=== PATIENT | male | born 1975 | race Caucasian/White ===

== ENCOUNTER 2017-10-14 18:47 | Emergency (ER) | payer SELFPAY ==
[~2017-10-14 18:47] MED LIST: BACT PO; BACT800T5 PO; CEPH500C3 PO
[2017-10-14 18:49] VITALS: BP 136/92; PULSE 98; RESP 14; TEMP 98; O2SAT 98
[2017-10-14] MEDS ORDERED: predniSONE 20 MG TAB PO ONE (19:30)
--- NOTE | 2017-10-14 20:00 | RADRPT ---
EXAM DATE/TIME: 10/14/2017 19:18 [facility] COMPARISON: CT BRAIN W/O CONTRAST, December 12, 2011, 15:01. INDICATIONS : Right facial paralysis. RADIATION DOSE: 56.35 CTDIvol (mGy) MEDICAL HISTORY : Seizures. Hepatitis C. SURGICAL HISTORY : None. ENCOUNTER: Initial ACUITY: 1 day PAIN SCALE: 0/10 LOCATION: cranial TECHNIQUE: Multiple contiguous axial images were obtained of the head. Using automated exposure control and adj ustment of the mA and/or kV according to patient size, radiation dose was kept as low as reasonably a chievable to obtain optimal diagnostic quality images. DICOM format image data is available electro nically for review and comparison. FINDINGS: CEREBRUM: The ventricles are normal for age. No evidence of midline shift, mass lesion, hemorrhage or acute in farction. No extra-axial fluid collections are seen. POSTERIOR FOSSA: The cerebellum and brainstem are intact. The 4th ventricle is midline. The cerebellopontine angle i s unremarkable. EXTRACRANIAL: The visualized portion of the orbits is intact. SKULL: The calvaria is intact. No evidence of skull fracture. CONCLUSION: No acute disease. No significant change has occurred. Miugel Patricio MD on October 14, 2017 at 19:57 Board Certified Radiologist. This report was verified electronically.
[2017-10-14] MEDS ORDERED: PRED20 PO (20:18)
[2017-10-14] MEDS ORDERED: PRED50 PO (20:18)
[2017-10-14] MEDS ORDERED: ACYC400T PO (20:18)
[2017-10-14] MEDS ORDERED: IBUP1TAB7 PO (20:18)
--- NOTE | 2017-10-14 20:28 | PD ---
HPI Chief Complaint: Numbness/Tingling Time Seen by Provider: 19:07 Travel History International Travel<30 days: No Contact w/Intl Traveler<30days: No Traveled to known affect area: No History of Present Illness HPI 42-year-old male that presents to the ED for evaluation of numbness to the right head with facial paralysis. The patient previous history of Simms's palsy and has had issues from and in the past her he notices this no flare about 3 days ago. Per patient has some pain in his ear. Patient is a little concerned because it started a little different where he had numbness on shoulder and then numbness to face the day after. No history of trauma. No chest or shortness of breath. Pain. Patient is 4 out of 10. No urinary or bowel movement issues. No fevers chills or sweats. Has no PCP in the area. Denies any history of CVA. Paralysis only to the right side of the face. Denies any other neurological deficits. PFSH Past Medical History Hx Anticoagulant Therapy: No Arthritis: No Asthma: No Autoimmune Disease: No Blood Disorders: No Anxiety: No Depression: No Heart Rhythm Problems: No Cancer: No Cardiovascular Problems: No High Cholesterol: No Chemotherapy: No Chest Pain: No Congestive Heart Failure: No COPD: No Cerebrovascular Accident: No Diabetes: No Diminished Hearing: No Endocrine: No Gastrointestinal Disorders: Yes Genitourinary: No Hepatitis: Yes (C) Immune Disorder: No Implanted Vascular Access Dvce: No Kidney Stones: No Musculoskeletal: Yes Neurologic: Yes (hx of bells palsy ) Psychiatric: Yes Reproductive: No Respiratory: No Immunizations Current: No Migraines: No Radiation Therapy: No Renal Failure: No Seizures: Yes Sickle Cell Disease: No Sleep Apnea: No Thyroid Disease: No Tetanus Vaccination: < 5 Years PNEUMOCCOCAL Vaccine (Year): 3 Past Surgical History Abdominal Surgery: No AICD: No Arteriovenous Shunt: No Cardiac Surgery: No Ear Surgery: No Endocrine Surgery: No Eye Surgery: No Genitourinary Surgery: No Gynecologic Surgery: No Insulin Pump: No Joint Replacement: No Oral Surgery: No Pacemaker: No Thoracic Surgery: No Other Surgery: Yes (MRSA RIGHT RING FINGER SCRAPED OUT OF JOINT) Social History Alcohol Use: No Tobacco Use: Yes (1 PPD) Substance Use: No (pt denies) Allergies-Medications (Allergen,Severity, Reaction): Coded Allergies: codeine (Unverified Allergy, Severe, Nausea/Vomiting, 10/14/17) *MDRO Multi-Drug Resistant Organism (Verified Allergy, Unknown, 10/14/17) MRSA Reported Meds & Prescriptions Reported Meds & Active Scripts Active Prednisone 20 Mg Tab 10 Mg PO DAILY 1 Days Take 40 mg (2 tablets) daily for 5 days Prednisone 20 Mg Tab 20 Mg PO DAILY 1 Days Take 40 mg (2 tablets) daily for 5 days Prednisone 20 Mg Tab 30 Mg PO DAILY 1 Days Take 40 mg (2 tablets) daily for 5 days Prednisone 20 Mg Tab 40 Mg PO DAILY 1 Days Take 40 mg (2 tablets) daily for 5 days Prednisone 50 Mg Tab 50 Mg PO DAILY 1 Days Prednisone 20 Mg Tab 60 Mg PO DAILY 5 Days Acyclovir 400 Mg Tab 400 Mg PO 5 TIMES A DAY 10 Days Ibuprofen 800 Mg Tab 800 Mg PO Q8H PRN Review of Systems Except as stated in HPI: all other systems reviewed are Neg Physical Exam Narrative GENERAL: SKIN: Warm and dry. HEAD: Atraumatic. Normocephalic. EYES: Pupils equal and round 4mms reactive to light and accomodation. No scleral icterus. No injection or drainage. ENT: No nasal bleeding or discharge. Mucous membranes pink and moist. Tongue is midline. Patient does have obvious paralysis on the right side of the face note sparing the forehead. Patient cannot close the right eye fully. Patient has full EOM motion. NECK: Trachea midline. No JVD. CARDIOVASCULAR: Regular rate and rhythm. RESPIRATORY: No accessory muscle use. Clear to auscultation. Breath sounds equal bilaterally. GASTROINTESTINAL: Abdomen soft, non-tender, nondistended. Hepatic and splenic margins not palpable. MUSCULOSKELETAL: Extremities without clubbing, cyanosis, or edema. No obvious deformities. full ROM of the upper and lower extremities bilaterally. Neurovascular intact. 2+ pulses bilaterally. No lumbar, thoracic, cervical spine tenderness to palpation. NEUROLOGICAL: Awake and alert. No obvious cranial nerve deficits. Motor grossly within normal limits. Five out of 5 muscle strength in the arms and legs. Normal speech. PSYCHIATRIC: Appropriate mood and affect; insight and judgment normal. Data Data Last Documented VS Vital Signs Date Time Temp Pulse Resp B/P (MAP) Pulse Ox O2 Delivery O2 Flow Rate FiO2 10/14/17 18:49 98.0 98 14 136/92 (107) 98 Orders Orders Prednisone (Deltasone) (10/14/17 19:30) Ct Brain W/O Iv Contrast(Rout) (10/14/17 ) Ed Discharge Order (10/14/17 20:22) [facility] Medical Decision Making Medical Screen Exam Complete: Yes Emergency Medical Condition: Yes Medical Record Reviewed: Yes Interpretation(s) Last Impressions Head CT 10/14/17 0000 Signed Impressions: Service Date/Time: Saturday, October 14, 2017 19:18 - CONCLUSION: No acute disease. No significant change has occurred. Miguel Patricio MD Differential Diagnosis Simms's palsy versus CVA versus normal exam Narrative Course 42-year-old male that presents to the ED for evaluation of possible Simms's palsy. Patient was properly examined and was found to have signs and symptoms consistent with appears to be Simms's palsy. He is concerned because his her having numbness on the shoulder before the symptoms started. CT was ordered to rule out any sign of acute CVA out of this appears to be less likely. CT was negative. Patient was crying tach. Patient agrees with discharge instructions. Patient was given prescription for penicillin and given the first dose of that here. Patient was given prescription for cyclobenzaprine and ibuprofen for pain. Told to follow closely with PCP. See ED worsening symptoms. Follow with neurologist. Diagnosis Primary Impression: Simms's palsy Patient Instructions: General Instructions Additional Instructions: Take medications as prescribed. Follow with PCP. See ED worsening symptoms. Med/Other Pt SpecificInfo: Prescription(s) given Scripts Prednisone (Prednisone) 20 Mg Tab 10 MG PO DAILY for 1 Day, #1 TAB 0 Refills Take 40 mg (2 tablets) daily for 5 days Prov: Mercy White MD 10/14/17 Prednisone (Prednisone) 20 Mg Tab 20 MG PO DAILY for 1 Day, #1 TAB 0 Refills Take 40 mg (2 tablets) daily for 5 days Prov: Mercy White MD 10/14/17 Prednisone (Prednisone) 20 Mg Tab 30 MG PO DAILY for 1 Day, #2 TAB 0 Refills Take 40 mg (2 tablets) daily for 5 days Prov: Mercy White MD 10/14/17 Prednisone (Prednisone) 20 Mg Tab 40 MG PO DAILY for 1 Day, #2 TAB 0 Refills Take 40 mg (2 tablets) daily for 5 days Prov: Mercy White MD 10/14/17 Prednisone (Prednisone) 50 Mg Tab 50 MG PO DAILY for 1 Day, #1 TAB 0 Refills Prov: Mercy White MD 10/14/17 Prednisone (Prednisone) 20 Mg Tab 60 MG PO DAILY for 5 Days, #15 TAB 0 Refills Prov: Mercy White MD 10/14/17 Acyclovir (Acyclovir) 400 Mg Tab 400 MG PO 5 TIMES A DAY for Mgmt Viral Infection for 10 Days, TAB 0 Refills Prov: Mercy White MD 10/14/17 Ibuprofen (Ibuprofen) 800 Mg Tab 800 MG PO Q8H Y for PAIN SCALE 1 TO 10, #20 TAB 0 Refills Prov: Mercy White MD 10/14/17 Disposition: 01 DISCHARGE HOME Condition: Kaleb Palacio Oct 14, 2017 20:28
== END 2017-10-14 20:41 | disposition home or self-care (01) ==
LOC: NEPC 18:47
DX: G51.0 Bell's palsy (principal); R56.9 Unspecified convulsions; F17.200 Nicotine dependence, unspecified, uncomplicated; Z79.899 Other long term (current) drug therapy; Z86.19 Personal history of other infectious and parasitic diseases; Z88.5 Allergy status to narcotic agent
CPT/HCPCS: 70450; 99284; J7512

== ENCOUNTER 2017-11-02 02:05 | Emergency (ER) | payer SELFPAY ==
[~2017-11-02] VITALS: Ht 172.7 cm; Wt 72.5 kg
[~2017-11-02 02:05] MED LIST changes: +ACYC400T PO; -BACT PO; -BACT800T5 PO; -CEPH500C3 PO; +IBUP1TAB7 PO; +PRED20 PO; +PRED50 PO
[2017-11-02 02:10] VITALS: BP 102/61; PULSE 89; RESP 17; TEMP 98.4; O2SAT 99
--- NOTE | 2017-11-02 03:30 | PD ---
HPI . Overdose Chief Complaint: OD/ Ingestion Time Seen by Provider: 02:27 Travel History International Travel<30 days: No Contact w/Intl Traveler<30days: No Traveled to known affect area: No History of Present Illness HPI The patient is brought to us via [facility] after a heroin overdose. He was resuscitated in the field with Narcan 0.4 mg IV. He is now awake and alert. History Past Medical History Anxiety: No Arthritis: No Asthma: No Autoimmune Disease: No Blood Disorders: No Cancer: No Heart Rhythm Problems: No Cardiovascular Problems: No High Cholesterol: No Chemotherapy: No Chest Pain: No Congestive Heart Failure: No COPD: No Cerebrovascular Accident: No Depression: No Diabetes: No Endocrine: No Gastrointestinal Disorders: Yes Genitourinary: No Hearing: No Hepatitis: Yes (C) Immune Disorder: No Implanted Vascular Access Dvce: No Kidney Stones: No Musculoskeletal: Yes Neurologic: Yes (hx of bells palsy ) Psychiatric: Yes Reproductive: No Respiratory: No Immunizations Current: No Migraines: No Radiation Therapy: No Renal Failure: No Sickle Cell Disease: No Sleep Apnea: No Thyroid Disease: No PNEUMOCCOCAL Vaccine (Year): 3 Vision or Eye Problem: No Past Surgical History Abdominal Surgery: No AICD: No Arteriovenous Shunt: No Cardiac Surgery: No Ear Surgery: No Endocrine Surgery: No Eye Surgery: No Genitourinary Surgery: No Gynecologic Surgery: No Insulin Pump: No Joint Replacement: No Oral Surgery: No Pacemaker: No Thoracic Surgery: No Other Surgery: Yes (MRSA RIGHT RING FINGER SCRAPED OUT OF JOINT) Social History Tobacco Use in Home: Yes (1 PPD) Alcohol Use: No Tobacco Use: Yes (1 PPD) Substance Use: No (pt denies) Allergies-Medications (Allergen,Severity, Reaction): Coded Allergies: codeine (Unverified Allergy, Severe, Nausea/Vomiting, 10/14/17) *MDRO Multi-Drug Resistant Organism (Verified Allergy, Unknown, 10/14/17) MRSA Reported Meds & Prescriptions Reported Meds & Active Scripts Active Prednisone 20 Mg Tab 10 Mg PO DAILY 1 Days Take 40 mg (2 tablets) daily for 5 days Prednisone 20 Mg Tab 20 Mg PO DAILY 1 Days Take 40 mg (2 tablets) daily for 5 days Prednisone 20 Mg Tab 30 Mg PO DAILY 1 Days Take 40 mg (2 tablets) daily for 5 days Prednisone 20 Mg Tab 40 Mg PO DAILY 1 Days Take 40 mg (2 tablets) daily for 5 days Prednisone 50 Mg Tab 50 Mg PO DAILY 1 Days Prednisone 20 Mg Tab 60 Mg PO DAILY 5 Days Acyclovir 400 Mg Tab 400 Mg PO 5 TIMES A DAY 10 Days Ibuprofen 800 Mg Tab 800 Mg PO Q8H PRN ROS Except as stated in HPI: all other systems reviewed are Neg Physical Exam Narrative GENERAL: Awake and alert and fully oriented. SKIN: warm/dry. HEAD: Normocephalic. Atraumatic. EYES: Pupils equal and round. No scleral icterus. No injection or drainage. ENT: No nasal bleeding or discharge. Mucous membranes pink and moist. NECK: Trachea midline. Full range of motion without pain.. CARDIOVASCULAR: Regular rate and rhythm. RESPIRATORY: No accessory muscle use. Clear to auscultation. Breath sounds equal bilaterally. MUSCULOSKELETAL: No obvious deformities. NEUROLOGICAL: Awake and alert. No obvious cranial nerve deficits. Motor grossly within normal limits. Normal speech. PSYCHIATRIC: Appropriate mood and affect; insight and judgment normal. Data Data Last Documented VS Vital Signs Date Time Temp Pulse Resp B/P (MAP) Pulse Ox O2 Delivery O2 Flow Rate FiO2 11/02/17 02:33 14 99 Nasal Cannula 2.00 11/02/17 02:10 98.4 89 102/61 (75) MDM Medical Decision Making Medical Screen Exam Complete: Yes Emergency Medical Condition: Yes Differential Diagnosis Differential diagnosis of altered mental status includes but is not limited to infection, electrolyte abnormality, neurological event, intoxication Narrative Course This patient is brought to us by [facility] after a heroin overdose. He was resuscitated by Narcan. He has been awake and alert and fully oriented with no respiratory distress since that time. He is interested in seeking rehabilitation. We will try to get him a bed at [facility]. Diagnosis Primary Impression: Heroin overdose Qualified Codes: T40.1X1A - Poisoning by heroin, accidental (unintentional), initial encounter Patient Instructions: General Instructions, Medical Clearance for Substance Abuse Treatment (DC) Disposition: DISCHARGE HOME Condition: Stable Primary Care Physician Unknown Clau Argueta MD Nov 02, 2017 03:30
== END 2017-11-02 06:10 | disposition home or self-care (01) ==
LOC: NEPC 02:05
DX: T40.1X1A Poisoning by heroin, accidental (unintentional), initial encounter (principal); B19.20 Unspecified viral hepatitis C without hepatic coma; F17.210 Nicotine dependence, cigarettes, uncomplicated; Z88.5 Allergy status to narcotic agent; Z79.899 Other long term (current) drug therapy
CPT/HCPCS: 99283

== ENCOUNTER 2018-01-15 11:49 | Emergency (ER) | payer SELFPAY ==
[~2018-01-15] VITALS: Ht 172.7 cm; Wt 64.0 kg
[2018-01-15] VITALS (7 sets, daily range): BP systolic 141–164; BP diastolic 11–109; PULSE 87–116; RESP 17–18; TEMP 98.7; O2SAT 99–100
[2018-01-15] MEDS ORDERED: SODIUM CHLOR 0.9% 1000 ML INJ 1,000 ML IV ONE ×2 (12:02→14:30)
[2018-01-15] MEDS ORDERED: SODIUM CHLORIDE 0.9% FLUSH 10 ML FLUSH IVF PRN (12:15)
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
[2018-01-15 12:50] LABS: AUTOMATED NEUTROPHIL # 5.6 TH/MM3 (1.8-7.7); BASOPHIL % 0.5 % (0.0-2.0); EOSINOPHIL % 0.3 % (0.0-4.0); HEMATOCRIT 38.9 % (39.0-51.0); HEMOGLOBIN 13.2 GM/DL (13.0-17.0); LYMPH % 26.5 % (9.0-44.0); LYMPHOCYTE # 2.3 TH/MM3 (1.0-4.8); MEAN CORPUSCULAR HEMOGLOBIN 28.4 PG (27.0-34.0); MEAN CORPUSCULAR HGB CONC 33.8 % (32.0-36.0); MEAN PLATELET VOLUME 7.3 FL (7.0-11.0); MONO % 6.9 % (0.0-8.0); MONOCYTE # 0.6 TH/MM3 (0-0.9); NEUT % 65.8 % (16.0-70.0); PLATELET COUNT 374 TH/MM3 (150-450); RED BLOOD COUNT 4.63 MIL/MM3 (4.50-5.90); RED CELL DISTRIBUTION WIDTH 14.6 % (11.6-17.2); WHITE BLOOD COUNT 8.5 TH/MM3 (4.0-11.0)
--- NOTE | 2018-01-15 12:53 | RADRPT ---
EXAM DATE/TIME: 01/15/2018 12:29 [facility] COMPARISON: No previous studies available for comparison. INDICATIONS : Palpitations. MEDICAL HISTORY : Hepatitis C. Seizures SURGICAL HISTORY : None. ENCOUNTER: Initial ACUITY: 1 day PAIN SCORE: 0/10 LOCATION: Bilateral chest FINDINGS: A single view of the chest demonstrates the lungs to be symmetrically aerated without evidence of mas s, infiltrate or effusion. The cardiomediastinal contours are unremarkable. Osseous structures are intact. CONCLUSION: No acute disease. Yakov Martínez MD on January 15, 2018 at 12:51 Board Certified Radiologist. This report was verified electronically.
[2018-01-15 13:07] LABS: ALBUMIN 3.6 GM/DL (3.4-5.0); ALT (GPT) 31 U/L (12-78); AST (GOT) 28 U/L (15-37); BLOOD UREA NITROGEN 13 MG/DL (7-18); CALCIUM 9.1 MG/DL (8.5-10.1); CHLORIDE 99 MEQ/L (98-107); GLOMERULAR FILTRATION RATE 107 ML/MIN (>89); GLUCOSE,RANDOM 103 MG/DL (74-106); MAGNESIUM 2.1 MG/DL (1.5-2.5); SODIUM (NA) 135 MEQ/L (136-145)
[2018-01-15 13:11] LABS: ALKALINE PHOSPHATASE 76 U/L (45-117); TOTAL BILIRUBIN ADULT 0.5 MG/DL (0.2-1.0); TOTAL PROTEIN 8.1 GM/DL (6.4-8.2); TROPONIN I LESS THAN 0.02 NG/ML (0.02-0.05)
[2018-01-15 13:28] LABS: BILIRUBIN, URINE NEG (NEG); BLOOD, URINE NEG (NEG); GLUCOSE,URINE NEG (NEG); KETONE, URINE TRACE mg/dL (NEG); MUCUS URINE FEW /lpf (OCC); NITRITE,URINE NEG (NEG); SQUAMOUS EPITHELIAL CELL URINE <1 /hpf (0-5); URINE COLOR YELLOW (YELLW/STRAW); URINE LEUKOCYTE ESTERASE NEG (NEG)
--- NOTE | 2018-01-15 14:59 | EKG ---
Date Performed: 01/15/2018 Time Performed: 12:05:08 PTAGE: 42 years EKG: Sinus rhythm POSSIBLE LEFT ATRIAL ENLARGEMENT BORDERLINE ECG No significant change from prior electrocardiogram. PREVIOUS TRACING : 03/22/2013 20.33 DOCTOR: Donald Mirza Interpretating Date/Time 01/15/2018 14:56:56
== END 2018-01-15 16:36 | disposition home or self-care (01) ==
LOC: NEPD 11:49
DX: F19.10 Other psychoactive substance abuse, uncomplicated (principal); R00.0 Tachycardia, unspecified; F17.200 Nicotine dependence, unspecified, uncomplicated; R07.89 Other chest pain
CPT/HCPCS: 71045; 80053; 80307; 81001; 82550; 82552; 83735; 84484; 85025; 93005; 96360; 96361; 99285; J7030

== ENCOUNTER 2018-01-20 18:37 | Emergency (ER) | payer SELFPAY ==
[~2018-01-20] VITALS: Ht 170.2 cm; Wt 65.0 kg
[2018-01-20 18:46] VITALS: BP 107/89; PULSE 100; RESP 18; TEMP 98.4; O2SAT 99
[2018-01-20] MEDS ORDERED: CLINDAMYCIN INJ 900 MG in SODIUM CHLORIDE 0.9% INJ 100 ML IV STA (19:00)
[2018-01-20 19:13] VITALS: O2SAT 97
--- NOTE | 2018-01-20 19:14 | PD ---
HPI Chief Complaint: OD/ Ingestion Time Seen by Provider: 18:51 Travel History International Travel<30 days: No Contact w/Intl Traveler<30days: No Traveled to known affect area: No History of Present Illness HPI patient was given narcan prior to arrival by ems due to confusion from heroin overdose..... PFSH Past Medical History Arthritis: No Asthma: No Autoimmune Disease: No Blood Disorders: No Anxiety: No Depression: No Heart Rhythm Problems: No Cancer: No Cardiovascular Problems: No High Cholesterol: No Chemotherapy: No Chest Pain: No Congestive Heart Failure: No COPD: No Cerebrovascular Accident: No Diabetes: Yes Patient Takes Glucophage: No Diminished Hearing: No Endocrine: No Gastrointestinal Disorders: No Genitourinary: No Headaches: No Hepatitis: Yes (C) Heparin Induced Thrombocytopen: No Immune Disorder: No Implanted Vascular Access Dvce: No Kidney Stones: No Musculoskeletal: Yes Neurologic: Yes (hx of bells palsy ) Psychiatric: Yes Reproductive: No Respiratory: No Immunizations Current: No Migraines: No Radiation Therapy: No Renal Failure: No Seizures: Yes Sickle Cell Disease: No Sleep Apnea: No Thyroid Disease: No PNEUMOCCOCAL Vaccine (Year): 3 Past Surgical History Abdominal Surgery: No AICD: No Arteriovenous Shunt: No Cardiac Surgery: No Ear Surgery: No Endocrine Surgery: No Eye Surgery: No Genitourinary Surgery: No Gynecologic Surgery: No Insulin Pump: No Joint Replacement: No Neurologic Surgery: No Oral Surgery: No Pacemaker: No Thoracic Surgery: No Other Surgery: Yes (MRSA RIGHT RING FINGER SCRAPED OUT OF JOINT) Social History Alcohol Use: Yes (OCCASSIONALLY) Tobacco Use: Yes (1 PPD) Substance Use: No (Remote history of cocaine abuse) Allergies-Medications (Allergen,Severity, Reaction): Coded Allergies: codeine (Unverified Allergy, Severe, Nausea/Vomiting, 01/15/18) *MDRO Multi-Drug Resistant Organism (Verified Allergy, Unknown, 01/15/18) MRSA Reported Meds & Prescriptions Reported Meds & Active Scripts Active No Active Prescriptions or Reported Medications Review of Systems General / Constitutional: No: Fever Eyes: No: Visual changes HENT: No: Headaches Cardiovascular: No: Chest Pain or Discomfort Respiratory: No: Shortness of Breath Gastrointestinal: No: Abdominal Pain Genitourinary: No: Dysuria Musculoskeletal: No: Pain Skin: No Rash Neurologic: Positive: Weakness Psychiatric: No: Depression Endocrine: No: Polydipsia Hematologic/Lymphatic: No: Easy Bruising Physical Exam Narrative GENERAL: SKIN: Warm and dry. right biceps has indurated HEAD: Atraumatic. Normocephalic. EYES: Pupils equal and round. No scleral icterus. No injection or drainage. ENT: No nasal bleeding or discharge. Mucous membranes pink and moist. NECK: Trachea midline. No JVD. CARDIOVASCULAR: Regular rate and rhythm. RESPIRATORY: No accessory muscle use. Clear to auscultation. Breath sounds equal bilaterally. GASTROINTESTINAL: Abdomen soft, non-tender, nondistended MUSCULOSKELETAL: Extremities without clubbing, cyanosis, or edema. No obvious deformities. NEUROLOGICAL: Awake and alert. No obvious cranial nerve deficits. Motor grossly within normal limits. Five out of 5 muscle strength in the arms and legs. Normal speech. PSYCHIATRIC: Appropriate mood and affect; insight and judgment normal. Data Data Last Documented VS Vital Signs Date Time Temp Pulse Resp B/P (MAP) Pulse Ox O2 Delivery O2 Flow Rate FiO2 01/20/18 21:32 92 16 139/92 (108) 95 Room Air 01/20/18 18:46 98.4 Orders Orders Sepsis Workup Initiated (01/20/18 ) Complete Blood Count With Diff (01/20/18 19:00) Comprehensive Metabolic Panel (01/20/18:00) Prothrombin Time / Inr (Pt) (01/20/18:00) Act Partial Throm Time (Ptt) (01/20/18:00) Lactic Acid Sepsis Protocol (01/20/18 19:00) Lipase (01/20/18:00) Troponin I (01/20/18:) Urinalysis - C+S If Indicated (01/20/18 19:) Blood Culture (01/20/18:00) Chest, Single Ap (01/20/18 19:00) Blood Glucose (01/20/18 19:00) Ecg Monitoring (01/20/18:00) Iv Access Insert/Monitor (01/20/18:00) Oximetry (01/20/18:00) Clindamycin 900 Mg/Ns Premix (Cleocin 90 (01/20/18 19:15) Labs Laboratory Tests Test 01/20/18 19:00 01/20/18 19:17 White Blood Count 13.1 TH/MM3 Red Blood Count 4.55 MIL/MM3 Hemoglobin 12.8 GM/DL Hematocrit 38.7 % Mean Corpuscular Volume 85.0 FL Mean Corpuscular Hemoglobin 28.2 PG Mean Corpuscular Hemoglobin Concent 33.2 % Red Cell Distribution Width 15.0 % Platelet Count 395 TH/MM3 Mean Platelet Volume 7.8 FL Neutrophils (%) (Auto) 76.2 % Lymphocytes (%) (Auto) 17.0 % Monocytes (%) (Auto) 5.2 % Eosinophils (%) (Auto) 0.8 % Basophils (%) (Auto) 0.8 % Neutrophils # (Auto) 10.0 TH/MM3 Lymphocytes # (Auto) 2.2 TH/MM3 Monocytes # (Auto) 0.7 TH/MM3 Eosinophils # (Auto) 0.1 TH/MM3 Basophils # (Auto) 0.1 TH/MM3 CBC Comment DIFF FINAL Differential Comment Prothrombin Time 10.3 SEC Prothromb Time International Ratio 1.0 RATIO Activated Partial Thromboplast Time 21.6 SEC Blood Urea Nitrogen 19 MG/DL Creatinine 1.00 MG/DL Random Glucose 119 MG/DL Total Protein 7.7 GM/DL Albumin 3.4 GM/DL Calcium Level 9.3 MG/DL Alkaline Phosphatase 68 U/L Aspartate Amino Transf (AST/SGOT) 13 U/L Alanine Aminotransferase (ALT/SGPT) 20 U/L Total Bilirubin 0.4 MG/DL Sodium Level 139 MEQ/L Potassium Level 3.5 MEQ/L Chloride Level 106 MEQ/L Carbon Dioxide Level 26.1 MEQ/L Anion Gap 7 MEQ/L Estimat Glomerular Filtration Rate 83 ML/MIN Troponin I LESS THAN 0.02 NG/ML Lipase 76 U/L Lactic Acid Level 1.3 mmol/L [facility] Medical Decision Making Medical Screen Exam Complete: Yes Emergency Medical Condition: Yes Medical Record Reviewed: Yes Differential Diagnosis opiate overdose v pna v pulm edema v cellulitis v lymphangitis v abscess Narrative Course CBC shows reactive leukocytosis, no anemia, no left shift, and normal platelet count. Regulation profile is within normal limits Electrolytes are all within normal limits, normal creatinine liver function and pancreatic enzymes. Cardiac enzymes negative, lactic acid negative chest x-ray read by radiologist as no evidence of acute cardiopulmonary disease Diagnosis Primary Impression: IV drug user Additional Impression: cellulitis right bicep Patient Instructions: Cellulitis (ED), General Instructions Scripts Sulfamethoxazole-Trimethoprim (Bactrim DS) 800-160 Mg Tab 1 TAB PO BID for Infection, #20 TAB 0 Refills Prov: Conrado Bain MD 01/20/18 Disposition: 01 DISCHARGE HOME Condition: Stable Conrado Bain MD Jan 20, 2018 19:14
[2018-01-20] MEDS ORDERED: CLINDAMYCIN 900 MG/NS PREMIX 50 ML IV ONE (19:15)
[2018-01-20 19:25] VITALS: BP 132/84; PULSE 96; RESP 16; O2SAT 95
[2018-01-20 19:26] LABS: BASOPHIL # 0.1 TH/MM3 (0-0.2); BASOPHIL % 0.8 % (0.0-2.0); EOSINOPHIL # 0.1 TH/MM3 (0-0.4); EOSINOPHIL % 0.8 % (0.0-4.0); HEMATOCRIT 38.7 % (39.0-51.0); HEMOGLOBIN 12.8 GM/DL (13.0-17.0); LYMPHOCYTE # 2.2 TH/MM3 (1.0-4.8); MEAN CORPUSCULAR HEMOGLOBIN 28.2 PG (27.0-34.0); MEAN CORPUSCULAR HGB CONC 33.2 % (32.0-36.0); MEAN PLATELET VOLUME 7.8 FL (7.0-11.0); MONO % 5.2 % (0.0-8.0); MONOCYTE # 0.7 TH/MM3 (0-0.9); NEUT % 76.2 % (16.0-70.0); PLATELET COUNT 395 TH/MM3 (150-450); RED BLOOD COUNT 4.55 MIL/MM3 (4.50-5.90); WHITE BLOOD COUNT 13.1 TH/MM3 (4.0-11.0)
[2018-01-20 19:38] LABS: PROTHROMBIN TIME - PATIENT 10.3 SEC (9.8-11.6)
--- NOTE | 2018-01-20 19:44 | RADRPT ---
EXAM DATE/TIME: 01/20/2018 19:13 [facility] COMPARISON: No previous studies available for comparison. INDICATIONS : Overdose. MEDICAL HISTORY : [place] palsy, Seizures, Diabetes, Hep C. SURGICAL HISTORY : Right shoulder, Left knee. ENCOUNTER: Initial ACUITY: 1 day PAIN SCORE: Non-responsive. LOCATION: Bilateral chest FINDINGS: A single view of the chest demonstrates the lungs to be symmetrically aerated without evidence of mas s, infiltrate or effusion. The cardiomediastinal contours are unremarkable. Osseous structures are intact. CONCLUSION: No evidence of acute cardiopulmonary disease. Yakov Tee MD on January 20, 2018 at 19:42 Board Certified Radiologist. This report was verified electronically.
[2018-01-20 19:47] LABS: ALBUMIN 3.4 GM/DL (3.4-5.0); AST (GOT) 13 U/L (15-37); BICARBONATE 26.1 MEQ/L (21.0-32.0); BLOOD UREA NITROGEN 19 MG/DL (7-18); CALCIUM 9.3 MG/DL (8.5-10.1); CHLORIDE 106 MEQ/L (98-107); GLOMERULAR FILTRATION RATE 83 ML/MIN (>89); GLUCOSE,RANDOM 119 MG/DL (74-106); SODIUM (NA) 139 MEQ/L (136-145)
[2018-01-20 19:48] LABS: ALT (GPT) 20 U/L (12-78)
[2018-01-20 19:52] LABS: ALKALINE PHOSPHATASE 68 U/L (45-117); TOTAL BILIRUBIN ADULT 0.4 MG/DL (0.2-1.0); TOTAL PROTEIN 7.7 GM/DL (6.4-8.2); TROPONIN I LESS THAN 0.02 NG/ML (0.02-0.05)
[2018-01-20 21:32] VITALS: BP 139/92; PULSE 92; RESP 16; O2SAT 95
[2018-01-20] MEDS ORDERED: BACT800T5 PO (22:31)
[2018-01-21 02:23] VITALS: BP 158/94; PULSE 110; RESP 18; O2SAT 98
[2018-01-21 05:31] VITALS: BP 126/83; PULSE 110; RESP 20; O2SAT 98
== END 2018-01-21 07:15 | disposition home or self-care (01) ==
LOC: NEPD 18:37
DX: L03.113 Cellulitis of right upper limb (principal); F17.200 Nicotine dependence, unspecified, uncomplicated
CPT/HCPCS: 71045; 80053; 83605; 83690; 84484; 85025; 85610; 85730; 87040; 96365

== ENCOUNTER 2018-01-23 23:19 | Inpatient (IN) | payer SELFPAY ==
[~2018-01-23] VITALS: Ht 170.2 cm; Wt 61.4 kg
[~2018-01-23 23:19] MED LIST changes: -ACYC400T PO; +BACT800T5 PO; -IBUP1TAB7 PO; -PRED20 PO; -PRED50 PO
[2018-01-24] VITALS (8 sets, daily range): BP systolic 115–143; BP diastolic 57–87; PULSE 91–124; RESP 17–20; TEMP 98.8–102.6; O2SAT 93–100
[2018-01-24] MEDS ORDERED: SODIUM CHLOR 0.9% 1000 ML INJ 1,000 ML IV ONE (03:30)
[2018-01-24] MEDS ORDERED: VANCOMYCIN INJ 1,000 MG in SODIUM CHLOR 0.9% 250 ML INJ 250 ML IV ONE (03:30)
[2018-01-24] MEDS ORDERED: PIPERACIL-TAZO 4.5 GM PREMIX 100 ML IV ONE (03:30)
--- NOTE | 2018-01-24 03:57 | RADRPT ---
EXAM DATE/TIME: 01/24/2018 03:33 [facility] COMPARISON: CHEST SINGLE AP, January 20, 2018, 19:13. CHEST SINGLE AP, January 15, 2018, 12:29. INDICATIONS : Fever. MEDICAL HISTORY : None. SURGICAL HISTORY : None. ENCOUNTER: Initial ACUITY: 1 day PAIN SCORE: 0/10 LOCATION: Bilateral chest FINDINGS: Small lung volumes with mild bibasilar atelectasis. No pleural effusion or pneumothorax seen. Cardiom ediastinal silhouette grossly within normal limits for technique. CONCLUSION: Mild bibasilar atelectasis. Yakov Tee MD on January 24, 2018 at 3:55 Board Certified Radiologist. This report was verified electronically.
--- NOTE | 2018-01-24 04:02 | PD ---
HPI Chief Complaint: Skin Problem Time Seen by Provider: 03:33 Travel History International Travel<30 days: No Contact w/Intl Traveler<30days: No Traveled to known affect area: No History of Present Illness HPI 42-year-old male presents to the emergency department for swelling of the right upper extremity. Patient presents with redness warmth swelling and pain of the right upper extremity. Patient just signed out AGAINST MEDICAL ADVICE at [facility] where reportedly he underwent CT scan which identified an abscess in the biceps area. Patient states he did not like the care he was receiving at the [facility] and left AGAINST MEDICAL ADVICE. Patient was given a dose of antibiotic but he is not sure what it was. Patient had been on outpatient Bactrim with symptoms not improving. Patient had already been seen here at [facility] January 15 for polysubstance use and then January 20 for cellulitis of the right upper extremity and received IV clindamycin and prescription for Bactrim. Patient states pain of the right upper extremity is 10/10 intensity. Patient denies other concerns or complaints. Patient is right-handed. COUNT INCLUDES THE [facility] Past Medical History Narrative Medical Type 2 diabetes hepatitis C IV drug abuse; nursing notes reviewed Arthritis: No Asthma: No Autoimmune Disease: No Blood Disorders: No Anxiety: No Depression: No Heart Rhythm Problems: No Cancer: No Cardiovascular Problems: No High Cholesterol: No Chemotherapy: No Chest Pain: No Congestive Heart Failure: No COPD: No Cerebrovascular Accident: No Diabetes: Yes Diminished Hearing: No Endocrine: No Gastrointestinal Disorders: No Genitourinary: No Headaches: No Hepatitis: Yes (C) Heparin Induced Thrombocytopen: No Immune Disorder: No Implanted Vascular Access Dvce: No Kidney Stones: No Musculoskeletal: Yes Neurologic: Yes (hx of bells palsy ) Psychiatric: Yes Reproductive: No Respiratory: No Immunizations Current: No Migraines: No Radiation Therapy: No Renal Failure: No Seizures: Yes Sickle Cell Disease: No Sleep Apnea: No Thyroid Disease: No Tetanus Vaccination: Unknown PNEUMOCCOCAL Vaccine (Year): 3 Past Surgical History Abdominal Surgery: No AICD: No Arteriovenous Shunt: No Cardiac Surgery: No Ear Surgery: No Endocrine Surgery: No Eye Surgery: No Genitourinary Surgery: No Gynecologic Surgery: No Insulin Pump: No Joint Replacement: No Neurologic Surgery: No Oral Surgery: No Pacemaker: No Thoracic Surgery: No Other Surgery: Yes (MRSA RIGHT RING FINGER SCRAPED OUT OF JOINT) Social History Alcohol Use: Yes (OCCASSIONALLY) Tobacco Use: Yes (1 PPD) Substance Use: No (history of cocaine abuse and IV drug use) Allergies-Medications (Allergen,Severity, Reaction): Coded Allergies: codeine (Unverified Allergy, Severe, Nausea/Vomiting, 01/24/18) *MDRO Multi-Drug Resistant Organism (Verified Allergy, Unknown, 01/24/18) MRSA Reported Meds & Prescriptions Reported Meds & Active Scripts Active Bactrim DS (Sulfamethoxazole-Trimethoprim) 800-160 Mg Tab 1 Tab PO BID Review of Systems Except as stated in HPI: all other systems reviewed are Neg General / Constitutional: No: Fever, Chills HENT: No: Congestion Cardiovascular: No: Chest Pain or Discomfort Respiratory: No: Shortness of Breath Gastrointestinal: No: Abdominal Pain Musculoskeletal: Positive: Myalgias, Arthralgias, Limited ROM, Edema ( Secondary to swelling right upper), Pain (Right upper extremity) Skin: No Rash Neurologic: No: Weakness, Dizziness, Syncope Psychiatric: No: Anxiety Hematologic/Lymphatic: No: Lymph Node Enlargement Physical Exam Narrative GENERAL: Well-developed well-nourished male no acute distress no respiratory distress SKIN: Warm and dry. HEAD: Normocephalic. EYES: No scleral icterus. No injection or drainage. NECK: Supple, trachea midline. No JVD or lymphadenopathy. CARDIOVASCULAR: Increased regular rate and rhythm without murmurs, gallops, or rubs. RESPIRATORY: Breath sounds equal bilaterally. No accessory muscle use. GASTROINTESTINAL: Abdomen soft, non-tender, nondistended. MUSCULOSKELETAL: No cyanosis, or edema. 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 BACK: Nontender without obvious deformity. No CVA tenderness. Data Data Last Documented VS Vital Signs Date Time Temp Pulse Resp B/P (MAP) Pulse Ox O2 Delivery O2 Flow Rate FiO2 01/24/18 00:45 98.8 104 18 138/65 (89) 100 Orders Orders Sepsis Workup Initiated (01/24/18 ) Complete Blood Count With Diff (01/24/18 03:27) Comprehensive Metabolic Panel (01/24/18 03:27) Prothrombin Time / Inr (Pt) (01/24/18 03:27) Act Partial Throm Time (Ptt) (01/24/18 03:27) Lactic Acid Sepsis Protocol (01/24/18 03:27) Urinalysis - C+S If Indicated (01/24/18 03:27) Blood Culture (01/24/18 03:27) Chest, Single Ap (01/24/18 03:27) Blood Glucose (01/24/18 03:27) Ecg Monitoring (01/24/18 03:27) Iv Access Insert/Monitor (01/24/18 03:27) Oximetry (01/24/18 03:27) Oxygen Administration (01/24/18 03:27) Piperacil-Tazo 4.5 Gm Premix (Zosyn 4.5 (01/24/18 03:30) Vancomycin Inj (Vancomycin Inj) (01/24/18 03:30) Drug Screen, Random Urine (01/24/18 03:27) Sodium Chlor 0.9% 1000 Ml Inj (Ns 1000 M (01/24/18 03:30) Beta Hydroxybutyrate (Acetone) (01/24/18 03:33) Mri Upper Arm W&W/O Contrast (01/24/18 ) Mri Forearm W&W/O Contrast (01/24/18 ) Clindamycin 600 Mg/Ns Premix (Cleocin 60 (01/24/18 04:45) Ketorolac Inj (Toradol Inj) (01/24/18 04:45) Admit Order (Ed Use Only) (01/24/18 ) Plate Printer / Telemetry [id number] (01/24/18 05:02) Diet Npo (01/24/18 Breakfast) Activity Oob With Assistance (01/24/18 05:02) Notify Dr: Other (01/24/18 05:02) Labs Laboratory Tests Test 01/24/18 04:17 01/24/18 04:20 Urine Color LIGHT-YELLOW Urine Turbidity CLEAR Urine pH 5.5 Urine Specific [place] 1.013 Urine Protein TRACE mg/dL Urine Glucose (UA) NEG mg/dL Urine Ketones NEG mg/dL Urine Occult Blood NEG Urine Nitrite NEG Urine Bilirubin NEG Urine Urobilinogen LESS THAN 2.0 MG/DL Urine Leukocyte Esterase NEG Urine RBC LESS THAN 1 /hpf Urine WBC 2 /hpf Urine Mucus FEW /lpf Microscopic Urinalysis Comment CATH-CULT NOT IND Urine Opiates Screen POS Urine Barbiturates Screen NEG Urine Amphetamines Screen POS Urine Benzodiazepines Screen NEG Urine Cocaine Screen POS Urine Cannabinoids Screen POS White Blood Count 17.5 TH/MM3 Red Blood Count 4.33 MIL/MM3 Hemoglobin 12.1 GM/DL Hematocrit 36.4 % Mean Corpuscular Volume 84.2 FL Mean Corpuscular Hemoglobin 27.9 PG Mean Corpuscular Hemoglobin Concent 33.1 % Red Cell Distribution Width 14.9 % Platelet Count 507 TH/MM3 Mean Platelet Volume 8.1 FL Neutrophils (%) (Auto) 82.2 % Lymphocytes (%) (Auto) 9.5 % Monocytes (%) (Auto) 6.8 % Eosinophils (%) (Auto) 1.3 % Basophils (%) (Auto) 0.2 % Neutrophils # (Auto) 14.4 TH/MM3 Lymphocytes # (Auto) 1.7 TH/MM3 Monocytes # (Auto) 1.2 TH/MM3 Eosinophils # (Auto) 0.2 TH/MM3 Basophils # (Auto) 0.0 TH/MM3 CBC Comment DIFF FINAL Differential Comment Prothrombin Time 10.4 SEC Prothromb Time International Ratio 1.0 RATIO Activated Partial Thromboplast Time 26.4 SEC Blood Urea Nitrogen 10 MG/DL Creatinine 1.01 MG/DL Random Glucose 121 MG/DL Total Protein 7.3 GM/DL Albumin 2.7 GM/DL Calcium Level 8.6 MG/DL Alkaline Phosphatase 84 U/L Aspartate Amino Transf (AST/SGOT) 45 U/L Alanine Aminotransferase (ALT/SGPT) 17 U/L Total Bilirubin 0.4 MG/DL Sodium Level 132 MEQ/L Potassium Level 5.2 MEQ/L Chloride Level 99 MEQ/L Carbon Dioxide Level 28.1 MEQ/L Anion Gap 5 MEQ/L Estimat Glomerular Filtration Rate 82 ML/MIN Lactic Acid Level 1.6 mmol/L B-Hydroxybutyrate 0.07 MMOL/L MDM Medical Decision Making Medical Screen Exam Complete: Yes Emergency Medical Condition: Yes Medical Record Reviewed: Yes Interpretation(s) Lactic acid: 1.3, not elevated Urine drug screen positive for opiates cocaine and amphetamines and cannabinoids Last Impressions Chest X-Ray 01/24/18 8731 Signed Impressions: Service Date/Time: Wednesday, January 24, 2018 03:33 - CONCLUSION: Mild bibasilar atelectasis. Yakov Tee MD CBC & BMP Diagram 01/24/18 04:20 Total Protein 7.3, Albumin 2.7 L, Calcium Level 8.6, Alkaline Phosphatase 84, Aspartate Amino Transf (AST/SGOT) 45 H, Alanine Aminotransferase (ALT/SGPT) 17, Total Bilirubin 0.4 Vital Signs Date Time Temp Pulse Resp B/P (MAP) Pulse Ox O2 Delivery O2 Flow Rate FiO2 01/24/18 00:45 98.8 104 18 138/65 (89) 100 Differential Diagnosis Cellulitis, abscess, compartment syndrome Narrative Course Patient placed on monitor IV access obtained specimens collected and sent for resulting patient ordered Zosyn 4.5 g IV piggyback vancomycin 1 g IV piggyback and clindamycin 600 mg IV piggy Records from [facility] requested MRI ordered Patient's case discussed with on-call medicine service for admission Sepsis Criteria SIRS Criteria (2 or more): Heart rate over 90, WBC > 12374, < 4000 or > 10% bands Sepsis Criteria (SIRS+source): Infect source susp/known (RUE cellulitis/abscess ) Physician Communication Physician Communication discussed with [facility] for admission; Dr Tinajero --inpatient admission Diagnosis Primary Impression: Cellulitis of right upper extremity Additional Impressions: Abscess of right upper arm and forearm Polysubstance abuse Admitting Information Admitting Physician Requests: Admit Mercy White MD Jan 24, 2018 04:02
[2018-01-24 04:42] LABS: BILIRUBIN, URINE NEG (NEG); BLOOD, URINE NEG (NEG); GLUCOSE,URINE NEG (NEG); KETONE, URINE NEG (NEG); MUCUS URINE FEW /lpf (OCC); NITRITE,URINE NEG (NEG); PH, URINE 5.5 (5.0-8.5); URINE COLOR LIGHT-YELLOW (YELLW/STRAW); URINE LEUKOCYTE ESTERASE NEG (NEG)
[2018-01-24 04:45] LABS: AUTOMATED NEUTROPHIL # 14.4 TH/MM3 (1.8-7.7); BASOPHIL % 0.2 % (0.0-2.0); EOSINOPHIL # 0.2 TH/MM3 (0-0.4); EOSINOPHIL % 1.3 % (0.0-4.0); HEMATOCRIT 36.4 % (39.0-51.0); HEMOGLOBIN 12.1 GM/DL (13.0-17.0); LYMPH % 9.5 % (9.0-44.0); LYMPHOCYTE # 1.7 TH/MM3 (1.0-4.8); MEAN CELL VOLUME 84.2 FL (80.0-100.0); MEAN CORPUSCULAR HEMOGLOBIN 27.9 PG (27.0-34.0); MEAN CORPUSCULAR HGB CONC 33.1 % (32.0-36.0); MEAN PLATELET VOLUME 8.1 FL (7.0-11.0); MONO % 6.8 % (0.0-8.0); MONOCYTE # 1.2 TH/MM3 (0-0.9); NEUT % 82.2 % (16.0-70.0); PLATELET COUNT 507 TH/MM3 (150-450); RED BLOOD COUNT 4.33 MIL/MM3 (4.50-5.90); RED CELL DISTRIBUTION WIDTH 14.9 % (11.6-17.2); WHITE BLOOD COUNT 17.5 TH/MM3 (4.0-11.0)
[2018-01-24] MEDS ORDERED: KETOROLAC TROMETHAMINE 30 MG/ML (IVP) VIAL IV PUSH ONE (04:45)
[2018-01-24] MEDS ORDERED: CLINDAMYCIN 600 MG/NS PREMIX 50 ML IV ONE (04:45)
[2018-01-24 05:01] LABS: PROTHROMBIN TIME - PATIENT 10.4 SEC (9.8-11.6)
[2018-01-24 05:02] LABS: ALKALINE PHOSPHATASE 84 U/L (45-117); TOTAL BILIRUBIN ADULT 0.4 MG/DL (0.2-1.0); TOTAL PROTEIN 7.3 GM/DL (6.4-8.2)
[2018-01-24] MEDS ORDERED: NALOXONE HCL 0.4 MG/ML AMP IV PUSH PRN (05:15)
[2018-01-24] MEDS ORDERED: SODIUM CHLORIDE 0.9% FLUSH 10 ML FLUSH IV FLUSH PRN (05:15)
[2018-01-24] MEDS ORDERED: ACETAMINOPHEN 325 MG TAB PO PRN (05:15)
[2018-01-24] MEDS ORDERED: GLUCAGON 1 MG/ML VIAL OTHER PRN (05:15)
[2018-01-24] MEDS ORDERED: DEXTROSE 50% IN WATER 50 ML VIAL(D50) IV PUSH PRN (05:15)
[2018-01-24] MEDS ORDERED: Vancomycin Consult Pharmacy 1 EA OTHER SCH (05:15)
[2018-01-24 05:22] LABS: ALBUMIN 2.7 GM/DL (3.4-5.0); ALT (GPT) 17 U/L (12-78); AST (GOT) 45 U/L (15-37); BICARBONATE 28.1 MEQ/L (21.0-32.0); BLOOD UREA NITROGEN 10 MG/DL (7-18); CALCIUM 8.6 MG/DL (8.5-10.1); CHLORIDE 99 MEQ/L (98-107); CREATININE 1.01 MG/DL (0.60-1.30); GLOMERULAR FILTRATION RATE 82 ML/MIN (>89); GLUCOSE,RANDOM 121 MG/DL (74-106); SODIUM (NA) 132 MEQ/L (136-145)
[2018-01-24] MEDS: SODIUM CHLOR 0.9% 1000 ML INJ 1,000 ML IV SCH ×6 (05:45→15:08)
[2018-01-24] MEDS: INSULIN ASPART SUPPLEMENTAL SCALE SQ SCH ×4 (07:41→20:18)
[2018-01-24] MEDS: SODIUM CHLORIDE 0.9% FLUSH 10 ML FLUSH IV FLUSH SCH ×2 (08:54→20:18)
[2018-01-24] MEDS: PIPERACIL-TAZO 3.375 GM PREMIX 50 ML IV SCH ×3 (09:37→21:54)
[2018-01-24] MEDS ORDERED: NICOTINE 21 MG/24 HR PATCH T-DERMAL ONE (14:30)
--- NOTE | 2018-01-24 14:39 | HHI.HP ---
[facility] No Primary Care Physician Admission Diagnosis RUE cellulitis; sepsis; polysubstance abuse Diagnoses: (1) Abscess of right upper arm and forearm Diagnosis: Principal (2) Cellulitis of right upper extremity Diagnosis: Principal (3) Polysubstance abuse Diagnosis: Principal (4) Sepsis Diagnosis: Principal Travel History International Travel<30 Days: No Contact w/Intl Traveler <30 Da: No Traveled to Known Affected Are: No History of Present Illness Mr. Kapoor is a 50-year-old male. He is admitted secondary to abscess at his right biceps extending to reports his right elbow. He has a history of IV drug abuse. He says that the infections not at an area where he typically shoots up , he says it did start at an area where an IV line was attempted to be started. Fevers are present, 100.5F. Tachycardia is present. Leukocytosis is present. Sepsis criteria are met at time of admit. Patient was originally visiting [facility] and had the beginning of her workup there. He says he had one antibiotic treatment, he does not know which antibiotic. CT scan of the arm shows a large right bicep abscess. He left the hospital AMA. He returns to our hospital seeking further treatment due to worsening pain and drainage. No baseline medical problems other than polysubstance abuse. He has been using Bactrim as an outpatient, this has failed. Review of Systems Constitutional: COMPLAINS OF: Diaphoretic episodes, Fatigue, Fever, Chills, Night Sweats Eyes: DENIES: Blurred vision, Diplopia, Eye inflammation Ears, nose, mouth, throat: DENIES: Hearing loss, Vertigo, Nasal discharge Respiratory: DENIES: Cough, Wheezing, Shortness of breath Cardiovascular: DENIES: Chest pain, Palpitations, Syncope Gastrointestinal: DENIES: Abdominal pain, Black stools, Bloody stools Musculoskeletal: COMPLAINS OF: Joint pain, Muscle aches, Stiffness, Joint Swelling Integumentary: COMPLAINS OF: Abnormal pigmentation, DENIES: Nail changes, Pruritus, Rash Hematologic/lymphatic: DENIES: Bruising, Lymphadenopathy Immunologic/allergic: DENIES: Eczema, Urticaria Neurologic: DENIES: Abnormal gait, Headache, Paresthesias Psychiatric: DENIES: Anxiety, Confusion, Hallucinations Past Family Social History Past Medical History Polysubstance abuse Past Surgical History Abscess drainage at right finger, about 5 years ago Reported Medications Reported Meds & Active Scripts Active Bactrim DS (Sulfamethoxazole-Trimethoprim) 800-160 Mg Tab 1 Tab PO BID None Allergies: Coded Allergies: codeine (Unverified Allergy, Severe, Nausea/Vomiting, 01/24/18) *MDRO Multi-Drug Resistant Organism (Verified Allergy, Unknown, 01/24/18) MRSA Active Ordered Medications Administered Medications Medications (Trade) Dose Ordered Sig/Prema Route PRN Reason Start Time Stop Time Status Last Admin Dose Admin Piperacillin Sod/ Tazobactam Sod 50 ml @ 100 mls/hr Q6H IV 01/24/18 10:00 01/24/18 09:37 Sodium Chloride 1,000 ml @ 100 mls/hr Q10H IV 01/24/18 05:06 01/24/18 08:54 Sodium Chloride (NS Flush) 2 ml BID IV FLUSH 01/24/18 09:00 01/24/18 08:54 Sodium Chloride 1,000 ml @ 250 mls/hr Q4H IV 01/24/18 05:45 01/24/18 05:45 Family History MRSA Social History IV drug abuse Nicotine dependence No alcohol abuse reported Physical Exam Vital Signs Vital Signs Date Time Temp Pulse Resp B/P (MAP) Pulse Ox O2 Delivery O2 Flow Rate FiO2 01/24/18 10:10 100.0 110 20 139/87 (104) 97 01/24/18 05:57 100.5 01/24/18 05:56 93 Room Air 01/24/18 05:55 109 18 143/73 (96) 93 Room Air 01/24/18 05:19 95 Room Air 01/24/18 00:45 98.8 104 18 138/65 (89) 100 Physical Exam GENERAL: NAD, A&Ox3 HEAD: Normocephalic. NECK: Supple, trachea midline. No lymphadenopathy. EYES: No scleral icterus. No injection or drainage. CARDIOVASCULAR: Regular rate and rhythm without murmurs, gallops, or rubs. RESPIRATORY: Breath sounds equal bilaterally. No accessory muscle use. GASTROINTESTINAL: Abdomen soft, non-tender, nondistended. MUSCULOSKELETAL: No cyanosis, or edema. Indurated/edematous right arm and forearm. Focus of approximately 3 cm is at the medial aspect of the biceps with a pinpoint wound and purulent drainage. There is another focus just proximal to the cubital fossa which is about 2 cm, with less drainage. SKIN: Warm and dry. NEURO: No focal neurological deficitis. Laboratory Laboratory Tests Test 01/24/18 04:17 01/24/18 04:20 Urine Color LIGHT-YELLOW Urine Turbidity CLEAR Urine pH 5.5 Urine Specific [place] 1.013 Urine Protein TRACE Urine Glucose (UA) NEG Urine Ketones NEG Urine Occult Blood NEG Urine Nitrite NEG Urine Bilirubin NEG Urine Urobilinogen LESS THAN 2.0 Urine Leukocyte Esterase NEG Urine RBC LESS THAN 1 Urine WBC 2 Urine Mucus FEW Microscopic Urinalysis Comment CATH-CULT NOT IND Urine Opiates Screen POS Urine Barbiturates Screen NEG Urine Amphetamines Screen POS Urine Benzodiazepines Screen NEG Urine Cocaine Screen POS Urine Cannabinoids Screen POS White Blood Count 17.5 Red Blood Count 4.33 Hemoglobin 12.1 Hematocrit 36.4 Mean Corpuscular Volume 84.2 Mean Corpuscular Hemoglobin 27.9 Mean Corpuscular Hemoglobin Concent 33.1 Red Cell Distribution Width 14.9 Platelet Count 507 Mean Platelet Volume 8.1 Neutrophils (%) (Auto) 82.2 Lymphocytes (%) (Auto) 9.5 Monocytes (%) (Auto) 6.8 Eosinophils (%) (Auto) 1.3 Basophils (%) (Auto) 0.2 Neutrophils # (Auto) 14.4 Lymphocytes # (Auto) 1.7 Monocytes # (Auto) 1.2 Eosinophils # (Auto) 0.2 Basophils # (Auto) 0.0 CBC Comment DIFF FINAL Differential Comment Prothrombin Time 10.4 Prothromb Time International Ratio 1.0 Activated Partial Thromboplast Time 26.4 Blood Urea Nitrogen 10 Creatinine 1.01 Random Glucose 121 Total Protein 7.3 Albumin 2.7 Calcium Level 8.6 Alkaline Phosphatase 84 Aspartate Amino Transf (AST/SGOT) 45 Alanine Aminotransferase (ALT/SGPT) 17 Total Bilirubin 0.4 Sodium Level 132 Potassium Level 5.2 Chloride Level 99 Carbon Dioxide Level 28.1 Anion Gap 5 Estimat Glomerular Filtration Rate 82 Lactic Acid Level 1.6 B-Hydroxybutyrate 0.07 Date/Time Source Procedure Growth Status 01/24/18 04:20 Blood Peripheral Aerobic Blood Culture Pending Received 01/24/18 04:20 Blood Peripheral Anaerobic Blood Culture Pending Received Result Diagram: 01/24/18 0420 01/24/18 0420 Imaging Last Impressions Chest X-Ray 01/24/18 0327 Signed Impressions: Service Date/Time: Wednesday, January 24, 2018 03:33 - CONCLUSION: Mild bibasilar atelectasis. MD Nasima Tyson VTE Risk Assessment Caprini VTE Risk Assessment: Mod/High Risk (score >= 2) Caprini Risk Assessment Model Point Value = 1 Point Value = 2 Point Value = 3 Point Value = 5 Age 41-60 Minor surgery BMI > 25 kg/m2 Swollen legs Varicose veins or History of unexplained or recurrent spontaneous Oral contraceptives or hormone replacement Sepsis (< 1 month) Serious lung disease, including pneumonia (< 1 month) Abnormal pulmonary function Acute myocardial infarction Congestive heart failure (< 1 month) History of inflammatory bowel disease Medical patient at bed rest Age 61-74 Arthroscopic surgery Major open surgery (> 45 min) Laparoscopic surgery (> 45 min) Malignancy Confined to bed (> 72 hours) Immobilizing plaster cast Central venous access Age >= 75 History of VTE Family history of VTE Factor V Leiden Prothrombin [id number] Lupus anticoagulant Anticardiolipin antibodies Elevated serum homocysteine Heparin-induced thrombocytopenia Other congenital or acquired thrombophilia Stroke (< 1 month) Elective arthroplasty Hip, pelvis, or leg fracture Acute spinal cord injury (< 1 month) Prophylaxis Regimen Total Risk Factor Score Risk Level Prophylaxis Regimen 0-1 Low Early ambulation 2 Moderate Order ONE of the following: *Sequential Compression Device (SCD) *Heparin 5000 units SQ BID 3-4 Higher Order ONE of the following medications: *Heparin 5000 units SQ TID *Enoxaparin/Lovenox 40 mg SQ daily (WT < 150 kg, CrCl > 30 mL/min) *Enoxaparin/Lovenox 30 mg SQ daily (WT < 150 kg, CrCl > 10-29 mL/min) *Enoxaparin/Lovenox 30 mg SQ BID (WT < 150 kg, CrCl > 30 mL/min) AND/OR *Sequential Compression Device (SCD) 5 or more Highest Order ONE of the following medications: *Heparin 5000 units SQ TID (Preferred with Epidurals) *Enoxaparin/Lovenox 40 mg SQ daily (WT < 150 kg, CrCl > 30 mL/min) *Enoxaparin/Lovenox 30 mg SQ daily (WT < 150 kg, CrCl > 10-29 mL/min) *Enoxaparin/Lovenox 30 mg SQ BID (WT < 150 kg, CrCl > 30 mL/min) AND *Sequential Compression Device (SCD) Assessment and Plan Problem List: (1) Cellulitis of right upper extremity ICD Code: L03.113 - Cellulitis of right upper limb Status: Acute (2) Abscess of right upper arm and forearm ICD Code: L02.413 - Cutaneous abscess of right upper limb Status: Acute (3) Sepsis ICD Code: A41.9 - Sepsis Status: Acute (4) Polysubstance abuse ICD Code: F19.10 - Other psychoactive substance abuse, uncomplicated Status: Acute (5) IV drug user ICD Code: F19.90 - IV drug user Status: Acute Assessment and Plan 42-year-old male admitted secondary to right bicep abscess and cellulitis, with sepsis. Sepsis Treat infection Follow vital signs closely IV hydration Right biceps abscess Vancomycin Zosyn Probiotics Incision and drainage needed Ortho Surgical consult Nicotine dependence NicoDerm as needed for any withdrawal DVT prophylaxis SCDs for now, Lovenox after I&D Physician Certification 2 Midnight Certification Type: Admission for Inpatient Services Order for Inpatient Services The services are ordered in accordance with Medicare regulations or non- Medicare payer requirements, as applicable. In the case of services not specified as inpatient-only, they are appropriately provided as inpatient services in accordance with the 2-midnight benchmark. Estimated LOS (days): 4 days is the estimated time the patient will need to remain in the hospital, assuming treatment plan goals are met and no additional complications. Post-Hospital Plan: Home Anthony Massey MD Jan 24, 2018 14:39
[2018-01-24] MEDS: oxyCODONE/ACETAMINOPHEN 10 MG/325 MG TAB PO PRN (15:08)
[2018-01-24] MEDS: VANCOMYCIN 1,000 MG/NS 250 ML IV SCH ×2 (17:18)
[2018-01-24] MEDS: LACTOBACILLUS ACIDOPHILUS TAB PO SCH (17:18)
[2018-01-24] MEDS: MORPHINE SULFATE 4 MG/ML INJ IV PUSH PRN ×2 (17:24→21:54)
[2018-01-24] MEDS ORDERED: POVIDONE IODINE 5% (ANTISEPSIS KIT) 4 APPLICATIONS EACH NARE PRN (20:15)
[2018-01-24] MEDS ORDERED: SODIUM CHLORID 0.9% 500 ML IV PRN (20:15)
[2018-01-24] MEDS ORDERED: METOPROLOL TARTRATE 25 MG TAB PO PRN (20:15)
[2018-01-24] MEDS ORDERED: CHLORHEXIDINE GLUCONATE 2 % 1 PACK (2 CLOTHS) TOPICAL PRN (20:15)
[2018-01-24] MEDS ORDERED: LACTATED RINGER'S 1000 ML IV PRN (20:15)
[2018-01-24] MEDS: oxyCODONE/ACETAMINOPHEN 5 MG/325 MG TAB PO PRN (20:17)
[2018-01-25] VITALS (8 sets, daily range): BP systolic 106–128; BP diastolic 58–75; PULSE 69–95; RESP 16–18; TEMP 97.2–99.3; O2SAT 96–99
[2018-01-25] MEDS: oxyCODONE/ACETAMINOPHEN 5 MG/325 MG TAB PO PRN (00:51)
[2018-01-25] MEDS: SODIUM CHLOR 0.9% 1000 ML INJ 1,000 ML IV SCH ×2 (04:43→14:20)
[2018-01-25] MEDS: MORPHINE SULFATE 4 MG/ML INJ IV PUSH PRN (04:43)
[2018-01-25] MEDS: PIPERACIL-TAZO 3.375 GM PREMIX 50 ML IV SCH ×3 (04:43→16:23)
[2018-01-25] MEDS: VANCOMYCIN 1,000 MG/NS 250 ML IV SCH ×4 (05:31→18:10)
--- NOTE | 2018-01-25 07:47 | PD.CONS ---
[facility] Service Orthopedic Surgeons Consult Requested By Dr. Massey Reason for Consult Abscess of the right arm Primary Care Physician No Primary Care Physician Admission Diagnosis RUE cellulitis; sepsis; polysubstance abuse Diagnoses: (1) Cellulitis of right upper extremity Diagnosis: Secondary (2) Abscess of right upper arm and forearm Diagnosis: Principal (3) Sepsis Diagnosis: Secondary (4) Polysubstance abuse Diagnosis: Secondary (5) IV drug user Diagnosis: Secondary Chief Complaint: Pain and swelling of the right arm History of Present Illness Mr. Kapoor is a 50-year-old male. He is admitted secondary to abscess at his right biceps extending to reports his right elbow. He has a history of IV drug abuse. He says that the infections not at an area where he typically shoots up , he says it did start at an area where an IV line was attempted to be started. Fevers are present, 100.5F. Tachycardia is present. Leukocytosis is present. Sepsis criteria are met at time of admit. Patient was originally visiting [facility] and had the beginning of her workup there. He says he had one antibiotic treatment, he does not know which antibiotic. CT scan of the arm shows a large right bicep abscess. He left the hospital AMA. He returns to our hospital seeking further treatment due to worsening pain and drainage. No baseline medical problems other than polysubstance abuse. He has been using Bactrim as an outpatient, this has failed. This began spontaneously draining yesterday. I have been asked to see the patient in consultation regarding the same. It was initially explained to me that the patient had an abscess into the axilla. I asked the Department of General surgery to look at this. They have asked that I take over this case for surgical management Review of Systems Constitutional: COMPLAINS OF: Diaphoretic episodes Endocrine: DENIES: Heat/cold intolerance, Polydipsia, Polyuria, Polyphagia Eyes: DENIES: Blurred vision, Diplopia, Eye inflammation, Eye pain, Vision loss , Photosensitivity, Double Vision Ears, nose, mouth, throat: DENIES: Tinnitus, Hearing loss, Vertigo, Nasal discharge, Oral lesions, Throat pain, Hoarseness, Ear Pain, Running Nose, Epistaxis, Sinus Pain, Toothache, Odynophagia Respiratory: DENIES: Apneas, Cough, Snoring, Wheezing, Hemoptysis, Sputum production, Shortness of breath Cardiovascular: DENIES: Chest pain, Palpitations, Syncope, Dyspnea on Exertion , PND, Lower Extremity Edema, Orthopnea, Claudication Gastrointestinal: DENIES: Abdominal pain, Black stools, Bloody stools, Constipation, Diarrhea, Nausea, Vomiting, Difficulty Swallowing, Anorexia Genitourinary: DENIES: Sexual dysfunction, Urinary frequency, Urinary incontinence, Urgency, Hematuria, Dysuria, Nocturia, Penile Discharge, Testicular Pain, Testicular Swelling Musculoskeletal: COMPLAINS OF: Joint pain, Joint Swelling Hematologic/lymphatic: COMPLAINS OF: Lymphadenopathy Immunologic/allergic: DENIES: Eczema, Urticaria Neurologic: DENIES: Abnormal gait, Headache, Localized weakness, Paresthesias, Seizures, Speech Problems, Tremor, Poor Balance Psychiatric: DENIES: Anxiety, Confusion, Mood changes, Depression, Hallucinations, Agitation, Suicidal Ideation, Homicidal Ideation, Delusions Past Family Social History Past Medical History Polysubstance abuse Past Surgical History Abscess drainage at right finger, about 5 years ago Allergies: Coded Allergies: codeine (Unverified Allergy, Severe, Nausea/Vomiting, 01/24/18) *MDRO Multi-Drug Resistant Organism (Verified Allergy, Unknown, 01/24/18) MRSA Active Ordered Medications Current Medications Medications (Trade) Dose Ordered Sig/Prema Route Start Time Stop Time Status Last Admin Pharmacy Profile Note 0 ml @ 0 mls/hr UNSCH OTHER 01/24/18 05:15 Piperacillin Sod/ Tazobactam Sod 50 ml @ 100 mls/hr Q6H IV 01/24/18 10:00 01/25/18 04:43 (NS Flush) 2 ml UNSCH PRN IV FLUSH 01/24/18 05:15 (NS Flush) 2 ml BID IV FLUSH 01/24/18 09:00 01/24/18 20:18 (Tylenol) 650 mg Q4H PRN PO 01/24/18 05:15 01/24/18 21:53 (Narcan Inj) 0.4 mg UNSCH PRN IV PUSH 01/24/18 05:15 (D50w (Vial) Inj) 50 ml UNSCH PRN IV PUSH 01/24/18 05:15 (Glucagon Inj) 1 mg UNSCH PRN OTHER 01/24/18 05:15 (NovoLOG SUPPLEMENTAL SCALE) 1 ACHS SLIDING SCALE SQ 01/24/18 08:00 Vancomycin HCl 1000 mg/Sodium Chloride 250 ml @ 250 mls/hr Q12H IV 01/24/18 17:00 01/25/18 05:31 Miscellaneous Information SPECIFIC LAB TO BE ROXY... ONCE ONCE .XX 01/25/18 16:45 01/25/18 16:46 (Percocet 5-325 Mg) 1 tab Q4H PRN PO 01/24/18 14:30 01/25/18 00:51 (Percocet 10-325 Mg) 1 tab Q4H PRN PO 01/24/18 14:30 01/24/18 15:08 (Morphine Inj) 4 mg Q4HR PRN IV PUSH 01/24/18 14:30 01/25/18 04:43 Sodium Chloride 1,000 ml @ 84 mls/hr [id number] IV 01/24/18 14:30 01/25/18 04:43 (Habitrol 21 Mg Patch.24 Hr) 1 patch DAILY T-DERMAL 01/25/18 09:00 Miscellaneous Information 1 DAILY T-DERMAL 01/25/18 09:00 (Lactinex) 1 tab TID PO 01/24/18 18:00 01/24/18 17:18 Lactated Ringer's 1,000 ml @ 30 mls/hr Q24H PRN IV 01/24/18 20:15 01/27/18 20:14 Sodium Chloride 500 ml @ 30 mls/hr [id number] PRN IV 01/24/18 20:15 01/27/18 20:14 (Lopressor) 25 mg [employer] PRN PO 01/24/18 20:15 01/27/18 20:14 (Betadine 5% Antisepsis Kit) 1 applic [employer]ER[employer]IST PRN EACH NARE 01/24/18 20:15 01/27/18 20:14 (Chlorhexidine 2% Cloth) 3 pack [employer]ER[employer]IST PRN TOPICAL 01/24/18 20:15 01/27/18 20:14 Reported Meds & Active Scripts Active Bactrim DS (Sulfamethoxazole-Trimethoprim) 800-160 Mg Tab 1 Tab PO BID Family History MRSA Social History IV drug abuse Nicotine dependence No alcohol abuse reported Physical Exam Vital Signs Vital Signs Date Time Temp Pulse Resp B/P (MAP) Pulse Ox O2 Delivery O2 Flow Rate FiO2 01/25/18 04:33 97.8 69 16 106/58 (74) 99 01/25/18 00:45 87 01/25/18 00:17 99.3 91 16 111/59 (76) 97 01/24/18 21:47 102.6 124 17 115/57 (76) 95 01/24/18 16:01 109 01/24/18 14:33 100.3 91 18 120/62 (81) 95 01/24/18 10:10 100.0 110 20 139/87 (104) 97 Physical Exam The patient was examined at bedside last night. His girlfriend is with him. There is a bandage in the right medial aspect of the upper arm extending into the axilla. Significant swelling of the right arm is seen compared to the left. Redness is noted. There is a bandage over the swelling and some drainage is noted. Sensation distally is normal. He is able to wiggle his fingers. He has no pain with passive dorsiflexion of the fingers Laboratory Date/Time Source Procedure Growth Status 01/24/18 04:20 Blood Peripheral Aerobic Blood Culture Pending Received 01/24/18 04:20 Blood Peripheral Anaerobic Blood Culture Pending Received 01/24/18 13:45 Wound Arm Gram Stain Pending Received 01/24/18 13:45 Wound Arm Wound Culture Pending Received Result Diagram: 01/24/18 0420 01/24/18 0420 Imaging Review of the CT at [facility] shows evidence of an abscess that appears to be contained within the biceps muscle on the right upper arm extending toward the axilla. There is evidence of cellulitis distal including the distal upper arm elbow and forearm Assessment & Plan Assessment and Plan Abscess of the right upper arm. Cellulitis of the right arm. History of polysubstance abuse and IV drug abuse. PLAN: Surgical treatment for incision and drainage and possible wound VAC of the right upper arm. IV antibiotics per infectious disease recommendation. Medication for pain control per medical staff. Surgery anticipated for today Nikita Langley MD Jan 25, 2018 07:47
[2018-01-25] MEDS: INSULIN ASPART SUPPLEMENTAL SCALE SQ SCH ×2 (08:00→12:00)
[2018-01-25] MEDS ORDERED: GENTAMICIN SULFATE 80 MG/2 ML VIAL ONE (08:29)
[2018-01-25] MEDS: LACTOBACILLUS ACIDOPHILUS TAB PO SCH ×3 (09:13→18:10)
[2018-01-25] MEDS: NICOTINE 21 MG/24 HR PATCH T-DERMAL SCH (09:13)
[2018-01-25] MEDS: REMOVE OLD PATCH T-DERMAL SCH (09:13)
[2018-01-25] MEDS: SODIUM CHLORIDE 0.9% FLUSH 10 ML FLUSH IV FLUSH SCH ×2 (09:14→21:00)
[2018-01-25] MEDS: oxyCODONE/ACETAMINOPHEN 10 MG/325 MG TAB PO PRN (09:15)
[2018-01-25] MEDS ORDERED: ACETAMINOPHEN 1000 MG/100 ML 0 ML IV ONE (10:28)
[2018-01-25] MEDS ORDERED: POVIDONE IODINE 5% (ANTISEPSIS KIT) 4 APPLICATIONS EACH NARE PRN (10:45)
[2018-01-25] MEDS ORDERED: METOPROLOL TARTRATE 25 MG TAB PO PRN (10:45)
[2018-01-25] MEDS ORDERED: LACTATED RINGER'S 1000 ML IV PRN (10:45)
[2018-01-25] MEDS ORDERED: SODIUM CHLORID 0.9% 500 ML IV PRN (10:45)
[2018-01-25] MEDS ORDERED: CHLORHEXIDINE GLUCONATE 2 % 1 PACK (2 CLOTHS) TOPICAL PRN (10:45)
[2018-01-25] MEDS ORDERED: PHENYLEPH/NS 1000 MCG/10 ML SYR IV ONE (12:00)
[2018-01-25] MEDS ORDERED: PROPOFOL 200 MG/20 ML AMP IV ONE (12:00)
[2018-01-25] MEDS ORDERED: ONDANSETRON HCL 4 MG/2 ML VIAL IV ONE (12:00)
[2018-01-25] MEDS ORDERED: DEXAMETHASONE SOD PHOS 4 MG/ML VIAL IV ONE (12:00)
[2018-01-25] MEDS ORDERED: DO NOT ADM ANY ANTICOAGULANT DRUGS PRN (12:32)
--- NOTE | 2018-01-25 12:34 | PD.OP ---
cc: Nikita Langley MD Operative Report Date of Surgery: Jan 25, 2018 Preoperative Diagnosis: Abscess of the right upper arm. Cellulitis of the right arm, extensive Postoperative Diagnosis: Same Procedure: Irrigation and debridement of skin subcu tissue and muscle of the right upper arm. Placement of extensive wound VAC measuring 12 x 6 cm Anesthesia: General Surgeon: Nikita Langley Podopediatrician(s): LUCA Cui Operation and Findings: EBL: 250 cc INDICATION: This patient is a 42-year-old male with a history of swelling and purulent drainage from the right upper arm. He states that he had an IV placed in for purpose of dehydration. He is developed swelling within a few days. He presented to [facility] 2 days ago but left AMA in the middle of the night. I saw him last night and he had evidence of draining abscess from the right upper arm. He now presents for surgical treatment NOTE: Vicky uCi PA-C was present for the entire surgical procedure as my elder assistant. In my medical opinion her skill and care was necessary for proper management of this patient. PROCEDURE: The patient was brought to the operating room and anesthetized in the supine position. The right arm was brought into an abducted position. There was significant necrotic tissue and gross purulence. This is prepped with alcohol followed by Hibiclens followed by ChloraPrep and draped sterilely Antibiotics have been previously given. A timeout was done. The necrotic areas were debrided down to muscle. Abscess appeared to be superficial to the muscle extending along the biceps tendon. It involved the fascia of the muscle. This was all debrided with sharp and blunt dissection. Tissue cultures were sent down for microbiologic analysis. We did not open the entire skin between 2 necrotic areas. One was near the axilla and one was more distal. We worked underneath a tissue bridge. The area was cleaned out completely. The wound is irrigated with multiple liters of antibiotic irrigation. A large wound VAC measuring approximately 15 x 6 cm was placed underneath this region. This was then sealed. The patient was awakened and taken to the recovery room in satisfactory condition. Nikita Langley MD Jan 25, 2018 12:34
[2018-01-25] MEDS ORDERED: MIDAZOLAM HCL 2 MG/2 ML VIAL ONE (12:37)
[2018-01-25] MEDS ORDERED: *MEPERIDINE 25 MG INJ VIAL PERIprocedural Use ONLY ONE (12:38)
[2018-01-25] MEDS ORDERED: *morphine SULFATE 4 MG/ML PERIprocedure ONLY ONE ×3 (12:43→12:56)
[2018-01-25] MEDS ORDERED: diphenhydrAMINE HCL 25 MG CAP PO PRN (12:45)
[2018-01-25] MEDS ORDERED: ONDANSETRON HCL 4 MG/2 ML VIAL IVP PRN (12:45)
[2018-01-25] MEDS ORDERED: MAGNESIUM HYDROXIDE SUSP 30 ML CUP PO PRN (12:45)
[2018-01-25] MEDS ORDERED: HYDROmorphone HCL PF 0.5 MG/0.5 ML SYRINGE ONE ×3 (13:04→13:27)
[2018-01-25] MEDS ORDERED: HYDROmorphone HCL PF 2 MG/ML VIAL ONE (13:42)
[2018-01-25] MEDS: LACTATED RINGER'S 1000 ML INJ 1,000 ML IV SCH (13:46)
--- NOTE | 2018-01-25 14:28 | HHI.PR ---
Subjective Remarks Patient is seen postop today. He had incision and drainage and wound VAC placed. His primary complaint is related to pain. Past history of drug abuse increases his relative pain medicine tolerance. Objective Vital Signs Date Time Temp Pulse Resp B/P (MAP) Pulse Ox O2 Delivery O2 Flow Rate FiO2 01/25/18 12:30 98.7 109 20 129/80 (96) 100 Nasal Cannula 2 01/25/18 09:02 98.7 75 18 117/71 (86) 97 01/25/18 08:20 76 01/25/18 04:33 97.8 69 16 106/58 (74) 99 01/25/18 00:45 87 01/25/18 00:17 99.3 91 16 111/59 (76) 97 01/24/18 21:47 102.6 124 17 115/57 (76) 95 01/24/18 16:01 109 01/24/18 14:33 100.3 91 18 120/62 (81) 95 I/O 01/24/18 01/24/18 01/24/18 01/25/18 01/25/18 01/25/18 07:00 15:00 23:00 07:00 15:00 23:00 Intake Total 350 ml 1000 ml 2300 ml 900 ml Output Total 700 ml 100 ml Balance -350 ml 1000 ml 2300 ml 800 ml Intake IV Total 350 ml 1000 ml 2300 ml 300 ml Other 600 ml Output Urine Total 700 ml Estimated Blood Loss 100 ml # Voids 2 Result Diagram: 01/24/18 0420 01/24/18 0420 Objective Remarks GENERAL: NAD, A&Ox3 HEAD: Normocephalic. NECK: Supple, trachea midline. No lymphadenopathy. EYES: No scleral icterus. No injection or drainage. CARDIOVASCULAR: Regular rate and rhythm without murmurs, gallops, or rubs. RESPIRATORY: Breath sounds equal bilaterally. No accessory muscle use. GASTROINTESTINAL: Abdomen soft, non-tender, nondistended. MUSCULOSKELETAL: No cyanosis, or edema. Right arm is bandaged with wound VAC in place. SKIN: Warm and dry. NEURO: No focal neurological deficitis. A/P Problem List: (1) IV drug user ICD Code: F19.90 - IV drug user Status: Acute (2) Sepsis ICD Code: A41.9 - Sepsis Status: Acute (3) Cellulitis of right upper extremity ICD Code: L03.113 - Cellulitis of right upper limb Status: Acute (4) Abscess of right upper arm and forearm ICD Code: L02.413 - Cutaneous abscess of right upper limb Status: Acute (5) Polysubstance abuse ICD Code: F19.10 - Other psychoactive substance abuse, uncomplicated Status: Acute Assessment and Plan 42-year-old male admitted secondary to right bicep abscess and cellulitis, with sepsis. Postop. Wound VAC in place. Pain medications adjusted. Dilaudid IV with MS Contin, for pain. Sepsis Treat infection Follow vital signs closely IV hydration Right biceps abscess Status post I&D Status post wound VAC placement vancomycin Zosyn Probiotics Incision and drainage needed Ortho Surgical following Continue pain treatment Nicotine dependence NicoDerm as needed for any withdrawal DVT prophylaxis SCDs for now, Lovenox after I&D Anthony Massey MD Jan 25, 2018 14:28
[2018-01-25] MEDS ORDERED: MORPHINE SULFATE 30 MG CONTROLLED RELEASE TAB PO ONE (14:30)
[2018-01-25] MEDS ORDERED: PHARMACY ORDERED LAB ONE (16:45)
[2018-01-25 17:18] LABS: AUTOMATED NEUTROPHIL # 15.1 TH/MM3 (1.8-7.7); BASOPHIL % 0.1 % (0.0-2.0); EOSINOPHIL % 0.1 % (0.0-4.0); HEMATOCRIT 34.5 % (39.0-51.0); HEMOGLOBIN 11.2 GM/DL (13.0-17.0); LYMPH % 3.2 % (9.0-44.0); LYMPHOCYTE # 0.5 TH/MM3 (1.0-4.8); MEAN CORPUSCULAR HEMOGLOBIN 27.5 PG (27.0-34.0); MEAN CORPUSCULAR HGB CONC 32.4 % (32.0-36.0); MEAN PLATELET VOLUME 7.8 FL (7.0-11.0); MONO % 1.2 % (0.0-8.0); MONOCYTE # 0.2 TH/MM3 (0-0.9); NEUT % 95.4 % (16.0-70.0); PLATELET COUNT 421 TH/MM3 (150-450); RED BLOOD COUNT 4.06 MIL/MM3 (4.50-5.90); RED CELL DISTRIBUTION WIDTH 15.1 % (11.6-17.2); WHITE BLOOD COUNT 15.8 TH/MM3 (4.0-11.0)
[2018-01-25 17:42] LABS: ALBUMIN 2.3 GM/DL (3.4-5.0); ALKALINE PHOSPHATASE 72 U/L (45-117); ALT (GPT) 13 U/L (12-78); AST (GOT) 10 U/L (15-37); BICARBONATE 31.7 MEQ/L (21.0-32.0); BLOOD UREA NITROGEN 8 MG/DL (7-18); CALCIUM 8.6 MG/DL (8.5-10.1); CHLORIDE 97 MEQ/L (98-107); CREATININE 0.94 MG/DL (0.60-1.30); GLOMERULAR FILTRATION RATE 89 ML/MIN (>89); GLUCOSE,RANDOM 276 MG/DL (74-106); SODIUM (NA) 134 MEQ/L (136-145); TOTAL BILIRUBIN ADULT 0.2 MG/DL (0.2-1.0); TOTAL PROTEIN 6.9 GM/DL (6.4-8.2); VANCOMYCIN TROUGH 6.3 MCG/ML (5.0-10.0)
[2018-01-25] MEDS: HYDROmorphone HCL PF 2 MG/ML VIAL IV PUSH PRN ×2 (18:18→22:22)
--- NOTE | 2018-01-25 18:53 | MB ---
cc: Raj De La Fuente MD, Franklyn F MD DATE: 01/25/2018 REQUESTING PHYSICIAN: Dr. Anthony Massey REASON FOR CONSULTATION: 1. Bacteremia. Admitted with right biceps abscess. 2. Sepsis. 3. History of IVDU. HISTORY OF PRESENT ILLNESS: This is a 42-year-old white male who presented to the emergency department with pain and swelling of his right upper extremity and redness and warmth also. The patient was seen in this emergency department on 01/20. At the time, he was evaluated for dehydration. This is what he tells me. The medical record reports overdose/ingestion as the chief reason. He was noted to have been confused. He was felt to likely have cellulitis versus lymphangitis versus abscess of the right biceps region. He was given a prescription for Bactrim and he was discharged. He presented to [facility] Emergency Department after that and he was going to be admitted for surgery, but he left against medical advice. His fiancee is in the room and she said that he was not happy because they would not let her stay with him. When he was in the hospital at [facility] emergency department prior, he was given a dose of IV clindamycin. The patient was evaluated and blood cultures were drawn. He was taken to surgery today and he underwent I&D of the left bicep abscess and a wound VAC was applied to the wound. There was debridement of the skin and subcutaneous tissue and muscle of the right upper extremity. Culture has been taken. The Gram stain has gram-positive cocci in pairs. Blood cultures taken from 01/24 have Staph aureus. This is in 1 of 4 bottles. Currently, the patient is very drowsy from surgery and I am unable to get much information from him because he is very sleepy. He notes that he has pain in the left arm. Toxicology screen on the patient is positive for opiates, amphetamines, cocaine and cannabinoids. Due to his drowsiness, information is obtained from the medical record. The patient has had multiple hospitalizations for cellulitis before. PAST MEDICAL HISTORY: Polysubstance abuse, multiple drainages of abscess of the right hand and also the leg. ALLERGIES: CODEINE. MEDICATIONS: 1. Multiple vitamins. 2. Morphine sulfate p.r.n. 3. Sabrina-Colace. 4. Dilaudid p.r.n. 5. Nicotine patch 6. Lactinex 7. Vancomycin. 8. Piperacillin/tazobactam 9. Tylenol p.r.n. SOCIAL HISTORY: Positive for tobacco use 1 pack a day, alcohol use occasional, polysubstance use. FAMILY HISTORY: Noncontributory. REVIEW OF SYSTEMS: Significant for pain in the right upper extremity. Otherwise, negative. PHYSICAL EXAMINATION: GENERAL: A well-developed male who is in no acute distress. He is somnolent. VITAL SIGNS: Temperature 97.2. T-max of 102.6 yesterday evening. BP 128/68, heart rate 87, respirations 18. HEENT: The head is atraumatic. Extraocular muscles grossly intact. Pupils reactive to light. No icterus. Oropharynx - No visible lesions. NECK: Supple without swelling. LUNGS: Clear breath sounds. HEART: Regular S1 and S2 without audible murmurs. ABDOMEN: Bowel sounds present. Soft, benign. RECTAL: Not performed. EXTREMITIES: The right arm is wrapped in a surgical dressing from the surgical procedure. There is obvious swelling at the right wrist and dorsum of the right hand. Wound VAC is in place with serosanguineous drainage. The other extremities have no clubbing, cyanosis or edema. SKIN: No diffuse rash. NEUROLOGIC: No gross focal findings. PSYCHIATRIC: The patient is calm and cooperative. LABORATORY DATA: WBC 15.8, platelets 421, hemoglobin 11.2, 95% neutrophils. Creatinine 0.94, BUN 8, sodium 134, AST 10, ALT 13. IMPRESSION: 1. Bacteremia due to Staphylococcus aureus, probably secondary to left arm abscess and cellulitis. 1. Right arm abscess and cellulitis. Culture pending. The patient is status post incision and drainage for extensive cellulitis and includes debridement of the muscle of the right upper arm. 2. Polysubstance abuse. RECOMMENDATIONS: 1. Continue vancomycin. 2. Discontinue piperacillin/tazobactam. 3. Monitor the cultures for antibiotic adjustment. 4. Monitor clinical status. Thank you for this consultation. I will follow the patient's progress with you. MD SPARKLE Allen/ , 06:13 PM , 06:52 PM STEPHEN
[2018-01-25] MEDS: DOCUSATE SODIUM 50 MG/SENNA 8.6 MG TAB PO SCH (22:21)
[2018-01-26] VITALS (7 sets, daily range): BP systolic 120–138; BP diastolic 68–86; PULSE 70–88; RESP 16–20; TEMP 97.9–98.6; O2SAT 95–98
[2018-01-26] MEDS: LACTATED RINGER'S 1000 ML INJ 1,000 ML IV SCH ×3 (00:32→21:53)
[2018-01-26] MEDS: SODIUM CHLOR 0.9% 1000 ML INJ 1,000 ML IV SCH ×2 (02:41→14:10)
[2018-01-26] MEDS: HYDROmorphone HCL PF 2 MG/ML VIAL IV PUSH PRN ×5 (02:42→21:52)
[2018-01-26] MEDS: VANCOMYCIN INJ 1,250 MG in SODIUM CHLOR 0.9% 250 ML INJ 250 ML IV SCH ×2 (05:16→17:00)
--- NOTE | 2018-01-26 07:58 | PD.ORT.PN ---
Subjective Subjective Remarks Patient complains of pain. No focal complaints otherwise Objective Vitals Vital Signs Date Time Temp Pulse Resp B/P (MAP) Pulse Ox O2 Delivery O2 Flow Rate FiO2 01/26/18 04:32 98.6 84 16 127/74 (91) 95 01/26/18 02:25 88 01/26/18 01:28 98.5 88 16 125/71 (89) 98 01/25/18 20:48 99.1 95 16 127/75 (92) 96 01/25/18 16:45 97.2 87 18 128/68 (88) 97 01/25/18 16:35 89 01/25/18 14:00 97.6 79 20 152/84 (106) 99 Room Air 01/25/18 13:30 88 20 162/85 (110) 99 Room Air 01/25/18 13:15 88 20 157/83 (107) 99 Room Air 01/25/18 13:00 90 20 167/77 (107) 94 Room Air 01/25/18 12:45 91 20 130/80 (97) 93 01/25/18 12:30 98.7 109 20 129/80 (96) 100 Nasal Cannula 2 01/25/18 09:02 98.7 75 18 117/71 (86) 97 01/25/18 08:20 76 I/O 01/25/18 01/25/18 01/25/18 01/26/18 01/26/18 01/26/18 07:00 15:00 23:00 07:00 15:00 23:00 Intake Total 900 ml 2050 ml Output Total 100 ml 2400 ml Balance 800 ml 2050 ml -2400 ml Intake IV Total 300 ml 2050 ml Other 600 ml Output Urine Total 2400 ml Estimated Blood Loss 100 ml # Voids 5 # Bowel Movements 2 Result Diagram: 01/25/18 1634 01/25/18 1634 Objective Remarks Wound VAC right upper arm intact. Dressing slightly tight with Tom wrap. Sensation normal right arm. Motor strength normal right arm Assessment & Plan Assessment and Plan Abscess of the right upper arm. Cellulitis of the right arm. History of polysubstance abuse and IV drug abuse. SURGERY: I&D right arm skin, subcu and muscle. Placement of wound VAC: POD #1 PLAN: IV antibiotics per infectious disease recommendation. I will be unable to write pain medication for this patient. The patient has a long history of a IV drug abuse and polysubstance abuse. Wound VAC changed today and then Monday and Monday. This patient might need skin grafting at some point. Orthopedically stable Nikita Langley MD Jan 26, 2018 07:58
[2018-01-26] MEDS: MULTIVITAMINS/MINERALS THERAPEUTIC TAB PO SCH (08:41)
[2018-01-26] MEDS: MORPHINE SULFATE 30 MG CONTROLLED RELEASE TAB PO SCH ×2 (08:41→21:51)
[2018-01-26] MEDS: LACTOBACILLUS ACIDOPHILUS TAB PO SCH ×3 (08:41→16:44)
[2018-01-26] MEDS: NICOTINE 21 MG/24 HR PATCH T-DERMAL SCH (08:42)
[2018-01-26] MEDS: SODIUM CHLORIDE 0.9% FLUSH 10 ML FLUSH IV FLUSH SCH ×2 (08:43→21:51)
[2018-01-26] MEDS: DOCUSATE SODIUM 50 MG/SENNA 8.6 MG TAB PO SCH ×2 (08:43→21:51)
[2018-01-26] MEDS: REMOVE OLD PATCH T-DERMAL SCH (08:44)
--- NOTE | 2018-01-26 10:33 | HHI.PR ---
Subjective Remarks Doing well post op. Pain controlled when seen. No new complaints. Objective Vital Signs Date Time Temp Pulse Resp B/P (MAP) Pulse Ox O2 Delivery O2 Flow Rate FiO2 01/26/18 09:46 20 01/26/18 09:46 20 01/26/18 04:32 98.6 84 16 127/74 (91) 95 01/26/18 02:25 88 01/26/18 01:28 98.5 88 16 125/71 (89) 98 01/25/18 20:48 99.1 95 16 127/75 (92) 96 01/25/18 16:45 97.2 87 18 128/68 (88) 97 01/25/18 16:35 89 01/25/18 14:00 97.6 79 20 152/84 (106) 99 Room Air 01/25/18 13:30 88 20 162/85 (110) 99 Room Air 01/25/18 13:15 88 20 157/83 (107) 99 Room Air 01/25/18 13:00 90 20 167/77 (107) 94 Room Air 01/25/18 12:45 91 20 130/80 (97) 93 01/25/18 12:30 98.7 109 20 129/80 (96) 100 Nasal Cannula 2 I/O 01/25/18 01/25/18 01/25/18 01/26/18 01/26/18 01/26/18 07:00 15:00 23:00 07:00 15:00 23:00 Intake Total 900 ml 2050 ml Output Total 100 ml 2400 ml Balance 800 ml 2050 ml -2400 ml Intake IV Total 300 ml 2050 ml Other 600 ml Output Urine Total 2400 ml Estimated Blood Loss 100 ml # Voids 5 # Bowel Movements 2 Result Diagram: 01/25/18 1634 01/25/18 1634 Objective Remarks GENERAL: NAD, A&Ox3 HEAD: Normocephalic. NECK: Supple, trachea midline. No lymphadenopathy. EYES: No scleral icterus. No injection or drainage. CARDIOVASCULAR: Regular rate and rhythm without murmurs, gallops, or rubs. RESPIRATORY: Breath sounds equal bilaterally. No accessory muscle use. GASTROINTESTINAL: Abdomen soft, non-tender, nondistended. MUSCULOSKELETAL: No cyanosis, or edema. Right arm is bandaged with wound VAC in place. SKIN: Warm and dry. NEURO: No focal neurological deficitis. A/P Problem List: (1) IV drug user ICD Code: F19.90 - IV drug user Status: Acute (2) Sepsis ICD Code: A41.9 - Sepsis Status: Acute (3) Cellulitis of right upper extremity ICD Code: L03.113 - Cellulitis of right upper limb Status: Acute (4) Abscess of right upper arm and forearm ICD Code: L02.413 - Cutaneous abscess of right upper limb Status: Acute (5) Polysubstance abuse ICD Code: F19.10 - Other psychoactive substance abuse, uncomplicated Status: Acute Assessment and Plan 42-year-old male admitted secondary to right bicep abscess and cellulitis, with sepsis. Pain controlled. Follow cultures. Wound managment ongoing. Continue to follow CBC and BMP. Sepsis Treat infection Follow vital signs closely IV hydration Right biceps abscess Status post I&D Status post wound VAC placement vancomycin Zosyn Probiotics Incision and drainage needed Ortho Surgical following Continue pain treatment Nicotine dependence NicoDerm as needed for any withdrawal DVT prophylaxis SCDs for now, Lovenox after I&D Anthony Massey MD Jan 26, 2018 10:33
--- NOTE | 2018-01-26 14:30 | HHI.IDPN ---
Note Infectious Disease Note Patient notes that he has pain in his left arm. He states that he had chills last night. Notes that the chills are better. Afebrile. Wound culture has strep viridans group. Blood culture has staph aureus in 1 bottle. Repeat blood culture pending. presented to the emergency department with pain and swelling of his right upper extremity and redness and warmth also. The patient was seen in this emergency department on 01/20. At the time, he was evaluated for dehydration. This is what he tells me. The medical record reports overdose/ingestion as the chief reason. He was noted to have been confused. He was felt to likely have cellulitis versus lymphangitis versus abscess of the right biceps region. He was given a prescription for Bactrim and he was discharged. He presented to [facility] Emergency Department after that and he was going to be admitted for surgery, but he left against medical advice. His fiancee is in the room and she said that he was not happy because they would not let her stay with him. The patient was evaluated and blood cultures were drawn. He was taken to surgery today and he underwent I&D of the left bicep abscess and a wound VAC was applied to the wound. PAST MEDICAL HISTORY: Polysubstance abuse, multiple drainages of abscess of the right hand and also the leg. ALLERGIES: CODEINE. MEDICATIONS: Current Medications Medications (Trade) Dose Ordered Sig/Prema Route PRN Reason Start Time Stop Time Status Last Admin Dose Admin Pharmacy Profile Note 0 ml @ 0 mls/hr UNSCH OTHER 01/24/18 05:15 Sodium Chloride (NS Flush) 2 ml UNSCH PRN IV FLUSH FLUSH AFTER USING IV ACCESS 01/24/18 05:15 01/26/18 02:43 Sodium Chloride (NS Flush) 2 ml BID IV FLUSH 01/24/18 09:00 01/24/18 20:18 Acetaminophen (Tylenol) 650 mg Q4H PRN PO TEMP > 100.4 01/24/18 05:15 01/24/18 21:53 Naloxone HCl (Narcan Inj) 0.4 mg UNSCH PRN IV PUSH SEE LABEL COMMENTS 01/24/18 05:15 Sodium Chloride 1,000 ml @ 84 mls/hr [id number] IV 01/24/18 14:30 01/26/18 02:41 Nicotine (Habitrol 21 Mg Patch.24 Hr) 1 patch DAILY T-DERMAL 01/25/18 09:00 01/26/18 08:42 Miscellaneous Information 1 DAILY T-DERMAL 01/25/18 09:00 01/26/18 08:44 Lactobacillus Acidophilus (Lactinex) 1 tab TID PO 01/24/18 18:00 01/26/18 12:39 Sodium Chloride 500 ml @ 30 mls/hr [id number] PRN IV SEE LABEL COMMENTS 01/24/18 20:15 01/27/18 20:14 Povidone Iodine (Betadine 5% Antisepsis Kit) 1 applic SCOW DERRICK OPERATOR PRN EACH NARE SEE LABEL COMMENTS 01/24/18 20:15 01/27/18 20:14 Chlorhexidine Gluconate (Chlorhexidine 2% Cloth) 3 pack SCOW DERRICK OPERATOR PRN TOPICAL SEE LABEL COMMENTS 01/24/18 20:15 01/27/18 20:14 Lactated Ringer's 1,000 ml @ 30 mls/hr Q24H PRN IV SEE LABEL COMMENTS 01/25/18 10:45 01/28/18 10:44 Sodium Chloride 500 ml @ 30 mls/hr [id number] PRN IV SEE LABEL COMMENTS 01/25/18 10:45 01/28/18 10:44 Metoprolol Tartrate (Lopressor) 25 mg SCOW DERRICK OPERATOR PRN PO SEE LABEL COMMENTS 01/25/18 10:45 01/28/18 10:44 Povidone Iodine (Betadine 5% Antisepsis Kit) 1 applic SCOW DERRICK OPERATOR PRN EACH NARE SEE LABEL COMMENTS 01/25/18 10:45 01/28/18 10:44 Chlorhexidine Gluconate (Chlorhexidine 2% Cloth) 3 pack SCOW DERRICK OPERATOR PRN TOPICAL SEE LABEL COMMENTS 01/25/18 10:45 01/28/18 10:44 Lactated Ringer's 1,000 ml @ 85 mls/hr [id number] IV 01/25/18 14:00 01/25/18 13:46 Senna/Docusate Sodium (Sabrina-Colace) 1 tab BID PO 01/25/18 21:00 01/25/18 22:21 Magnesium Hydroxide (Milk Of Magnesia Liq) 10 ml Q12H PRN PO CONSTIPATION 01/25/18 12:45 Ondansetron HCl (Zofran Inj) 4 mg Q4H PRN IVP NAUSEA OR VOMITING 01/25/18 12:45 Multivitamins/ Minerals Therapeutic (Theragran M Tab) 1 tab DAILY PO 01/26/18 09:00 01/26/18 08:41 Diphenhydramine HCl (Benadryl) 25 mg Q6H PRN PO ITCHING 01/25/18 12:45 Morphine Sulfate (Oramorph Sr) 30 mg Q12HR PO 01/26/18 09:00 01/26/18 08:41 Hydromorphone HCl (Dilaudid Pf Inj) 2 mg Q4H PRN IV PUSH Pain 7 to 10 01/25/18 14:30 01/26/18 12:39 Hydromorphone HCl (Dilaudid Pf Inj) 1 mg Q4H PRN IV PUSH Pain 3 to 6 01/25/18 14:30 Vancomycin HCl 1250 mg/Sodium Chloride 262.5 ml @ 250 mls/hr Q12H IV 01/26/18 05:00 01/26/18 05:16 Miscellaneous Information SPECIFIC LAB TO BE DRAWN:VANCO TROUGH DATE TO BE DR... ONCE ONCE .XX 01/27/18 04:45 01/27/18 04:46 REVIEW OF SYSTEMS: Significant for pain in the right upper extremity. Otherwise, negative. Vital Signs Date Time Temp Pulse Resp B/P (MAP) Pulse Ox O2 Delivery O2 Flow Rate FiO2 01/26/18 13:22 20 01/26/18 09:46 20 01/26/18 04:32 98.6 84 16 127/74 (91) 95 01/26/18 02:25 88 01/26/18 01:28 98.5 88 16 125/71 (89) 98 01/25/18 20:48 99.1 95 16 127/75 (92) 96 01/25/18 16:45 97.2 87 18 128/68 (88) 97 01/25/18 16:35 89 Laboratory Tests Test 01/25/18 16:34 White Blood Count 15.8 TH/MM3 Red Blood Count 4.06 MIL/MM3 Hemoglobin 11.2 GM/DL Hematocrit 34.5 % Mean Corpuscular Volume 85.0 FL Mean Corpuscular Hemoglobin 27.5 PG Mean Corpuscular Hemoglobin Concent 32.4 % Red Cell Distribution Width 15.1 % Platelet Count 421 TH/MM3 Mean Platelet Volume 7.8 FL Neutrophils (%) (Auto) 95.4 % Lymphocytes (%) (Auto) 3.2 % Monocytes (%) (Auto) 1.2 % Eosinophils (%) (Auto) 0.1 % Basophils (%) (Auto) 0.1 % Neutrophils # (Auto) 15.1 TH/MM3 Lymphocytes # (Auto) 0.5 TH/MM3 Monocytes # (Auto) 0.2 TH/MM3 Eosinophils # (Auto) 0.0 TH/MM3 Basophils # (Auto) 0.0 TH/MM3 CBC Comment DIFF FINAL Differential Comment Blood Urea Nitrogen 8 MG/DL Creatinine 0.94 MG/DL Random Glucose 276 MG/DL Total Protein 6.9 GM/DL Albumin 2.3 GM/DL Calcium Level 8.6 MG/DL Alkaline Phosphatase 72 U/L Aspartate Amino Transf (AST/SGOT) 10 U/L Alanine Aminotransferase (ALT/SGPT) 13 U/L Total Bilirubin 0.2 MG/DL Sodium Level 134 MEQ/L Potassium Level 4.1 MEQ/L Chloride Level 97 MEQ/L Carbon Dioxide Level 31.7 MEQ/L Anion Gap 5 MEQ/L Estimat Glomerular Filtration Rate 89 ML/MIN Vancomycin Level Trough 6.3 MCG/ML PHYSICAL EXAMINATION: GENERAL: A well-developed male who is in no acute distress. he is alert. HEENT: The head is atraumatic. Extraocular muscles grossly intact. Pupils reactive to light. No icterus. Oropharynx - No visible lesions. NECK: Supple without swelling. LUNGS: Clear breath sounds. HEART: Regular S1 and S2 without audible murmurs. ABDOMEN: Bowel sounds present. Soft, benign. EXTREMITIES: The right arm is wrapped in a surgical dressing from the surgical procedure. There is obvious swelling at the right wrist and dorsum of the right hand. Wound VAC is in place with serosanguineous drainage. No clubbing, cyanosis or edema. SKIN: No diffuse rash. NEUROLOGIC: No gross focal findings. PSYCHIATRIC: Calm and cooperative. IMPRESSION: 1. Bacteremia due to Staphylococcus aureus. 1 of 4 bottles. 1. Right arm abscess and cellulitis above the elbow. Culture has strep viridans. The patient is status post incision and drainage for extensive cellulitis and including debridement of the muscle of the right upper arm. 2. Polysubstance abuse. RECOMMENDATIONS: 1. Continue vancomycin. 2. Monitor the new blood cultures. 3. Monitor clinical status. I do not think we need to do echo if the new blood cultures are negative. Raj De La Fuente MD Jan 26, 2018 14:30
[2018-01-27 00:18] VITALS: BP 128/70; PULSE 72; RESP 18; TEMP 98.4; O2SAT 96
[2018-01-27] MEDS: SODIUM CHLOR 0.9% 1000 ML INJ 1,000 ML IV SCH ×2 (02:05→14:00)
[2018-01-27 03:55] VITALS: BP 122/83; PULSE 71; RESP 18; TEMP 98.4; O2SAT 96
[2018-01-27] MEDS ORDERED: PHARMACY ORDERED LAB ONE (04:45)
[2018-01-27] MEDS: HYDROmorphone HCL PF 2 MG/ML VIAL IV PUSH PRN ×5 (05:04→21:01)
[2018-01-27] MEDS: VANCOMYCIN INJ 1,250 MG in SODIUM CHLOR 0.9% 250 ML INJ 250 ML IV SCH ×2 (06:04→17:38)
[2018-01-27] MEDS: REMOVE OLD PATCH T-DERMAL SCH (09:00)
[2018-01-27] MEDS: SODIUM CHLORIDE 0.9% FLUSH 10 ML FLUSH IV FLUSH SCH ×2 (09:00→20:46)
[2018-01-27] MEDS: NICOTINE 21 MG/24 HR PATCH T-DERMAL SCH (09:00)
[2018-01-27] MEDS: LACTOBACILLUS ACIDOPHILUS TAB PO SCH ×3 (09:01→18:21)
[2018-01-27] MEDS: MORPHINE SULFATE 30 MG CONTROLLED RELEASE TAB PO SCH ×2 (09:01→20:45)
[2018-01-27] MEDS: MULTIVITAMINS/MINERALS THERAPEUTIC TAB PO SCH (09:02)
[2018-01-27] MEDS: DOCUSATE SODIUM 50 MG/SENNA 8.6 MG TAB PO SCH ×2 (09:02→20:45)
[2018-01-27 09:06] VITALS: BP 126/88; PULSE 81; RESP 20; TEMP 98.6; O2SAT 97
[2018-01-27 12:09] VITALS: BP 135/79; PULSE 78; RESP 18; TEMP 98.5; O2SAT 97
[2018-01-27] MEDS: LACTATED RINGER'S 1000 ML INJ 1,000 ML IV SCH (13:04)
[2018-01-27 14:11] LABS: AUTOMATED NEUTROPHIL # 5.9 TH/MM3 (1.8-7.7); BASOPHIL # 0.1 TH/MM3 (0-0.2); BASOPHIL % 1.2 % (0.0-2.0); EOSINOPHIL # 0.5 TH/MM3 (0-0.4); EOSINOPHIL % 4.5 % (0.0-4.0); HEMATOCRIT 31.5 % (39.0-51.0); HEMOGLOBIN 10.4 GM/DL (13.0-17.0); LYMPHOCYTE # 2.6 TH/MM3 (1.0-4.8); MEAN CELL VOLUME 84.7 FL (80.0-100.0); MEAN CORPUSCULAR HEMOGLOBIN 27.9 PG (27.0-34.0); MEAN CORPUSCULAR HGB CONC 32.9 % (32.0-36.0); MEAN PLATELET VOLUME 7.4 FL (7.0-11.0); MONO % 8.6 % (0.0-8.0); MONOCYTE # 0.9 TH/MM3 (0-0.9); NEUT % 59.7 % (16.0-70.0); PLATELET COUNT 478 TH/MM3 (150-450); RED BLOOD COUNT 3.72 MIL/MM3 (4.50-5.90); RED CELL DISTRIBUTION WIDTH 14.9 % (11.6-17.2)
[2018-01-27 14:36] LABS: ALKALINE PHOSPHATASE 54 U/L (45-117); ALT (GPT) 14 U/L (12-78); AST (GOT) 13 U/L (15-37); BICARBONATE 27.9 MEQ/L (21.0-32.0); BLOOD UREA NITROGEN 10 MG/DL (7-18); CALCIUM 8.3 MG/DL (8.5-10.1); CHLORIDE 106 MEQ/L (98-107); CREATININE 0.61 MG/DL (0.60-1.30); GLOMERULAR FILTRATION RATE 146 ML/MIN (>89); GLUCOSE,RANDOM 91 MG/DL (74-106); SODIUM (NA) 142 MEQ/L (136-145); TOTAL BILIRUBIN ADULT 0.1 MG/DL (0.2-1.0); TOTAL PROTEIN 5.9 GM/DL (6.4-8.2)
[2018-01-27 18:00] VITALS: BP 143/90; PULSE 80; RESP 18; TEMP 98.2; O2SAT 97
--- NOTE | 2018-01-27 19:04 | HHI.PR ---
Subjective Remarks Resting comfortably in bed No event overnight Denied chest and or short of breath No fever or chills Objective Vitals Vital Signs Date Time Temp Pulse Resp B/P (MAP) Pulse Ox O2 Delivery O2 Flow Rate FiO2 01/27/18 18:00 98.2 80 18 143/90 (107) 97 01/27/18 12:09 98.5 78 18 135/79 (97) 97 01/27/18 09:06 98.6 81 20 126/88 (101) 97 01/27/18 03:55 98.4 71 18 122/83 (96) 96 01/27/18 00:18 98.4 72 18 128/70 (89) 96 01/26/18 23:45 76 01/26/18 21:15 98.4 70 18 138/86 (103) 96 I/O 01/26/18 01/26/18 01/26/18 01/27/18 01/27/18 01/27/18 07:00 15:00 23:00 07:00 15:00 23:00 Intake Total 262.5 ml Output Total 2400 ml Balance -2400 ml 262.5 ml Intake IV Total 262.5 ml Output Urine Total 2400 ml Result Diagram: 01/27/18 1320 01/27/18 1320 A/P Problem List: (1) Cellulitis of right upper extremity ICD Code: L03.113 - Cellulitis of right upper limb Status: Acute (2) Abscess of right upper arm and forearm ICD Code: L02.413 - Cutaneous abscess of right upper limb Status: Acute (3) Sepsis ICD Code: A41.9 - Sepsis Status: Acute (4) Polysubstance abuse ICD Code: F19.10 - Other psychoactive substance abuse, uncomplicated Status: Acute (5) IV drug user ICD Code: F19.90 - IV drug user Status: Acute Assessment and Plan 42-year-old male admitted secondary to right bicep abscess and cellulitis, with sepsis. 01/27Pain controlled. Follow cultures. Wound managment ongoing. Continue to follow CBC and BMP. Sepsis Treat infection Follow vital signs closely IV hydration Right biceps abscess Status post I&D by or so appreciate follow-up Status post wound VAC placement IV antibiotic per ID Vanco Zosyn Ortho Surgical following Pain management Nicotine dependence NicoDerm as needed for any withdrawal DVT prophylaxis SCDs for now, Lovenox after I&D Lisbeth Butler MD Jan 27, 2018 19:04
[2018-01-27 20:00] VITALS: BP_SYST 144; BP_SYST 154; BP_DIAS 67; BP_DIAS 87; PULSE 122; PULSE 78; PULSE 85; RESP 18; TEMP 98; TEMP 98.2; O2SAT 97; O2SAT 98
--- NOTE | 2018-01-27 20:39 | PD.ORT.PN ---
Objective Vitals Vital Signs Date Time Temp Pulse Resp B/P (MAP) Pulse Ox O2 Delivery O2 Flow Rate FiO2 01/27/18 18:00 98.2 80 18 143/90 (107) 97 01/27/18 12:09 98.5 78 18 135/79 (97) 97 01/27/18 09:06 98.6 81 20 126/88 (101) 97 01/27/18 03:55 98.4 71 18 122/83 (96) 96 01/27/18 00:18 98.4 72 18 128/70 (89) 96 01/26/18 23:45 76 01/26/18 21:15 98.4 70 18 138/86 (103) 96 I/O 01/26/18 01/26/18 01/26/18 01/27/18 01/27/18 01/27/18 07:00 15:00 23:00 07:00 15:00 23:00 Intake Total 262.5 ml Output Total 2400 ml Balance -2400 ml 262.5 ml Intake IV Total 262.5 ml Output Urine Total 2400 ml Result Diagram: 01/27/18 1320 01/27/18 1320 Objective Remarks Wound VAC right upper arm intact. Dressing CDI Sensation normal right arm. Motor strength normal right arm Assessment & Plan Assessment and Plan Abscess of the right upper arm. Cellulitis of the right arm. History of polysubstance abuse and IV drug abuse. SURGERY: I&D right arm skin, subcu and muscle. Placement of wound VAC: POD #2 PLAN: IV antibiotics per infectious disease recommendation. I will be unable to write pain medication for this patient. The patient has a long history of a IV drug abuse and polysubstance abuse. Wound VAC change planned Monday and Monday. This patient might need skin grafting at some point. Orthopedically stable Paul Reaves Jr., MD Jan 27, 2018 20:39
[2018-01-28] VITALS (7 sets, daily range): BP systolic 129–154; BP diastolic 71–87; PULSE 73–91; RESP 16–18; TEMP 97.8–98.4; O2SAT 94–98
[2018-01-28] MEDS: LACTATED RINGER'S 1000 ML INJ 1,000 ML IV SCH ×3 (00:50→20:17)
[2018-01-28] MEDS: SODIUM CHLOR 0.9% 1000 ML INJ 1,000 ML IV SCH ×2 (01:02→05:21)
[2018-01-28] MEDS: HYDROmorphone HCL PF 2 MG/ML VIAL IV PUSH PRN ×6 (01:07→21:28)
[2018-01-28] MEDS ORDERED: PHARMACY ORDERED LAB ONE (04:45)
[2018-01-28] MEDS: VANCOMYCIN INJ 1,250 MG in SODIUM CHLOR 0.9% 250 ML INJ 250 ML IV SCH ×2 (05:32→17:06)
[2018-01-28] MEDS: MULTIVITAMINS/MINERALS THERAPEUTIC TAB PO SCH (08:23)
[2018-01-28] MEDS: LACTOBACILLUS ACIDOPHILUS TAB PO SCH ×3 (08:23→17:06)
[2018-01-28] MEDS: REMOVE OLD PATCH T-DERMAL SCH (08:24)
[2018-01-28] MEDS: MORPHINE SULFATE 30 MG CONTROLLED RELEASE TAB PO SCH ×2 (08:24→21:27)
[2018-01-28] MEDS: NICOTINE 21 MG/24 HR PATCH T-DERMAL SCH (08:24)
[2018-01-28] MEDS: DOCUSATE SODIUM 50 MG/SENNA 8.6 MG TAB PO SCH ×3 (08:25→21:27)
[2018-01-28] MEDS: SODIUM CHLORIDE 0.9% FLUSH 10 ML FLUSH IV FLUSH SCH ×2 (08:25→21:00)
--- NOTE | 2018-01-28 13:51 | PD.ORT.PN ---
Subjective Subjective Remarks In bed resting comfortable. He wants to be discharged soon. Objective Vitals Vital Signs Date Time Temp Pulse Resp B/P (MAP) Pulse Ox O2 Delivery O2 Flow Rate FiO2 01/28/18 12:00 97.8 74 18 139/71 (93) 97 01/28/18 09:58 78 01/28/18 08:00 98.0 80 18 140/86 (104) 98 01/28/18 04:00 98.2 76 18 131/79 (96) 97 01/28/18 00:00 98.0 73 16 129/75 (93) 94 01/27/18 20:00 122 01/27/18 20:00 98.0 85 18 144/67 (92) 98 01/27/18 18:00 98.2 80 18 143/90 (107) 97 I/O 01/27/18 01/27/18 01/27/18 01/28/18 01/28/18 01/28/18 07:00 15:00 23:00 07:00 15:00 23:00 Intake Total 262.5 ml 480 ml 60 ml Balance 262.5 ml 480 ml 60 ml Intake Oral 480 ml 60 ml IV Total 262.5 ml # Voids 1 3 5 Result Diagram: 01/27/18 1320 01/27/18 1320 Objective Remarks Wound VAC right upper arm intact and functional. Dressing CDI Sensation normal right arm. Motor strength normal right arm Assessment & Plan Assessment and Plan Abscess of the right upper arm. Cellulitis of the right arm. History of polysubstance abuse and IV drug abuse. SURGERY: I&D right arm skin, subcu and muscle. Placement of wound VAC: POD #3 PLAN: IV antibiotics per infectious disease I will be unable to write pain medication for this patient. The patient has a long history of a IV drug abuse and polysubstance abuse. Wound VAC change planned Monday and Monday. This patient might need skin grafting at some point. Orthopedically stable Paul Reaves Jr., MD Jan 28, 2018 13:51
--- NOTE | 2018-01-28 14:14 | HHI.PR ---
Subjective Remarks Resting in bed no fever, he wants to be discharged Objective Vitals Vital Signs Date Time Temp Pulse Resp B/P (MAP) Pulse Ox O2 Delivery O2 Flow Rate FiO2 01/28/18 12:00 97.8 74 18 139/71 (93) 97 01/28/18 12:00 91 01/28/18 09:58 78 01/28/18 08:00 98.0 80 18 140/86 (104) 98 01/28/18 04:00 98.2 76 18 131/79 (96) 97 01/28/18 00:00 98.0 73 16 129/75 (93) 94 01/27/18 20:00 122 01/27/18 20:00 98.0 85 18 144/67 (92) 98 01/27/18 18:00 98.2 80 18 143/90 (107) 97 I/O 01/27/18 01/27/18 01/27/18 01/28/18 01/28/18 01/28/18 07:00 15:00 23:00 07:00 15:00 23:00 Intake Total 262.5 ml 480 ml 60 ml Balance 262.5 ml 480 ml 60 ml Intake Oral 480 ml 60 ml IV Total 262.5 ml # Voids 1 3 5 Result Diagram: 01/27/18 1320 01/27/18 1320 A/P Problem List: (1) Cellulitis of right upper extremity ICD Code: L03.113 - Cellulitis of right upper limb Status: Acute (2) Abscess of right upper arm and forearm ICD Code: L02.413 - Cutaneous abscess of right upper limb Status: Acute (3) Sepsis ICD Code: A41.9 - Sepsis Status: Acute (4) Polysubstance abuse ICD Code: F19.10 - Other psychoactive substance abuse, uncomplicated Status: Acute (5) IV drug user ICD Code: F19.90 - IV drug user Status: Acute Assessment and Plan 42-year-old male admitted secondary to right bicep abscess and cellulitis, with sepsis. 01/28: Continue current care pain management, IV antibiotic, follow orthopedic and ID the recommendation Sepsis Treat infection Follow vital signs closely IV hydration Right biceps abscess Status post I&D by or so appreciate follow-up Status post wound VAC placement IV antibiotic per ID Vanco Zosyn Ortho Surgical following Pain management Nicotine dependence NicoDerm as needed for any withdrawal DVT prophylaxis SCDs for now, Lovenox after I&D Lisbeth Butler MD Jan 28, 2018 14:14
[2018-01-29] VITALS (8 sets, daily range): BP systolic 130–141; BP diastolic 72–87; PULSE 64–89; RESP 18–19; TEMP 97.9–98.2; O2SAT 96–98
[2018-01-29] MEDS: SODIUM CHLOR 0.9% 1000 ML INJ 1,000 ML IV SCH ×2 (01:45→05:51)
[2018-01-29] MEDS: HYDROmorphone HCL PF 2 MG/ML VIAL IV PUSH PRN ×6 (01:55→23:08)
[2018-01-29] MEDS: VANCOMYCIN INJ 1,250 MG in SODIUM CHLOR 0.9% 250 ML INJ 250 ML IV SCH ×2 (05:51→17:31)
[2018-01-29] MEDS: DOCUSATE SODIUM 50 MG/SENNA 8.6 MG TAB PO SCH ×2 (08:22→21:00)
[2018-01-29] MEDS: MULTIVITAMINS/MINERALS THERAPEUTIC TAB PO SCH (08:22)
[2018-01-29] MEDS: LACTOBACILLUS ACIDOPHILUS TAB PO SCH ×3 (08:22→17:31)
[2018-01-29] MEDS: REMOVE OLD PATCH T-DERMAL SCH (08:23)
[2018-01-29] MEDS: NICOTINE 21 MG/24 HR PATCH T-DERMAL SCH (08:23)
[2018-01-29] MEDS: SODIUM CHLORIDE 0.9% FLUSH 10 ML FLUSH IV FLUSH SCH ×2 (08:25→22:33)
[2018-01-29] MEDS: MORPHINE SULFATE 30 MG CONTROLLED RELEASE TAB PO SCH ×2 (08:32→22:30)
[2018-01-29] MEDS: LACTATED RINGER'S 1000 ML INJ 1,000 ML IV SCH ×2 (12:08→22:33)
--- NOTE | 2018-01-29 15:18 | HHI.IDPN ---
Note Infectious Disease Note Patient notes that he has pain in his right arm but that it is less. No chills. Denies sweats. Afebrile. Wound culture has strep viridans group. 01/24 blood culture has staph aureus in one set and another set has strep viridans. 01/25 culture from the right arm has strep viridans. Presented to the emergency department with pain and swelling of his right upper extremity and redness and warmth also. The patient was seen in this emergency department on 01/20. At the time, he was evaluated for dehydration. He was felt to likely have cellulitis versus lymphangitis versus abscess of the right biceps region. He was given a prescription for Bactrim and he was discharged. He presented to [facility] Emergency Department after that and he was going to be admitted for surgery, but he left against medical advice. He was taken to surgery today and he underwent I&D of the right bicep abscess and a wound VAC was applied to the wound. PAST MEDICAL HISTORY: Polysubstance abuse, multiple drainages of abscess of the right hand and also the leg. ALLERGIES: CODEINE. MEDICATIONS: Current Medications Medications (Trade) Dose Ordered Sig/Prema Route PRN Reason Start Time Stop Time Status Last Admin Dose Admin Pharmacy Profile Note 0 ml @ 0 mls/hr UNSCH OTHER 01/24/18 05:15 Sodium Chloride (NS Flush) 2 ml UNSCH PRN IV FLUSH FLUSH AFTER USING IV ACCESS 01/24/18 05:15 01/26/18 02:43 Sodium Chloride (NS Flush) 2 ml BID IV FLUSH 01/24/18 09:00 01/29/18 08:25 Acetaminophen (Tylenol) 650 mg Q4H PRN PO TEMP > 100.4 01/24/18 05:15 01/24/18 21:53 Naloxone HCl (Narcan Inj) 0.4 mg UNSCH PRN IV PUSH SEE LABEL COMMENTS 01/24/18 05:15 Sodium Chloride 1,000 ml @ 84 mls/hr [id number] IV 01/24/18 14:30 01/29/18 05:51 Nicotine (Habitrol 21 Mg Patch.24 Hr) 1 patch DAILY T-DERMAL 01/25/18 09:00 01/29/18 08:23 Miscellaneous Information 1 DAILY T-DERMAL 01/25/18 09:00 01/29/18 08:23 Lactobacillus Acidophilus (Lactinex) 1 tab TID PO 01/24/18 18:00 01/29/18 13:24 Lactated Ringer's 1,000 ml @ 85 mls/hr [id number] IV 01/25/18 14:00 01/25/18 13:46 Senna/Docusate Sodium (Sabrina-Colace) 1 tab BID PO 01/25/18 21:00 01/29/18 08:22 Magnesium Hydroxide (Milk Of Juan Ramon Liq) 10 ml Q12H PRN PO CONSTIPATION 01/25/18 12:45 Ondansetron HCl (Zofran Inj) 4 mg Q4H PRN IVP NAUSEA OR VOMITING 01/25/18 12:45 Multivitamins/ Minerals Therapeutic (Theragran M Tab) 1 tab DAILY PO 01/26/18 09:00 01/29/18 08:22 Diphenhydramine HCl (Benadryl) 25 mg Q6H PRN PO ITCHING 01/25/18 12:45 Morphine Sulfate (Oramorph Sr) 30 mg Q12HR PO 01/26/18 09:00 01/29/18 08:32 Hydromorphone HCl (Dilaudid Pf Inj) 2 mg Q4H PRN IV PUSH Pain 7 to 10 01/25/18 14:30 01/29/18 14:43 Hydromorphone HCl (Dilaudid Pf Inj) 1 mg Q4H PRN IV PUSH Pain 3 to 6 01/25/18 14:30 01/26/18 21:52 Vancomycin HCl 1250 mg/Sodium Chloride 262.5 ml @ 250 mls/hr Q12H IV 01/26/18 05:00 01/29/18 05:51 Miscellaneous Information SPECIFIC LAB TO BE ROXY... ONCE ONCE .XX 01/30/18 04:45 01/30/18 04:46 REVIEW OF SYSTEMS: Significant for pain in the right upper extremity. Otherwise, negative. Vital Signs Date Time Temp Pulse Resp B/P (MAP) Pulse Ox O2 Delivery O2 Flow Rate FiO2 01/29/18 12:00 98.1 84 18 141/87 (105) 96 01/29/18 08:00 98.2 64 18 136/77 (96) 97 01/29/18 05:29 82 01/29/18 04:00 98.1 67 18 130/74 (92) 98 01/29/18 00:00 97.9 73 18 131/83 (99) 97 01/29/18 00:00 76 01/28/18 20:00 98.2 78 18 154/87 (109) 97 01/28/18 20:00 86 01/28/18 16:00 98.4 82 18 134/79 (97) 98 PHYSICAL EXAMINATION: GENERAL: No acute distress. Awake and alert. HEENT: The head is atraumatic. Extraocular muscles grossly intact. Pupils reactive to light. No icterus. Oropharynx - No visible lesions. NECK: Supple without swelling. LUNGS: Clear breath sounds. HEART: Regular S1 and S2 without audible murmurs. ABDOMEN: Bowel sounds present. Soft, nontender EXTREMITIES: The right arm has wound VAC is in place with serosanguineous drainage. No erythema at the area where the wound VAC right humerus. A second location at the upper right humerus sponge the wound VAC is located has some induration. No clubbing, cyanosis or edema. SKIN: No diffuse rash. NEUROLOGIC: No gross focal findings. PSYCHIATRIC: Calm and cooperative. IMPRESSION: 1. Bacteremia due to Staphylococcus aureus. 1 of 4 bottles. 2. Bacteremia due to strep viridans. 3. Abscess of the left humerus with cellulitis due to strep viridans. The patient is status post incision and drainage for extensive cellulitis and including debridement of the muscle of the right upper arm. 4. Polysubstance abuse. Denies IV drugs. RECOMMENDATIONS: 1. Continue vancomycin. 2. Obtain 2D echocardiogram to evaluate for endocarditis because of the culture of strep viridans from the bloodstream. 3. Follow the repeat blood cultures until complete. 4. Monitor clinical status. Patient will need 2 weeks of antibiotics for the abscess if there is no concern for endocarditis. There is evidence of endocarditis antibiotic duration will need to be longer i.e. 4 weeks unless there is vegetation located on the tricuspid valve which we may be able to treat with shorter course. Raj De La Fuente MD Jan 29, 2018 15:18
--- NOTE | 2018-01-29 19:10 | HHI.PR ---
Subjective Remarks Pain is tolerable Sitting in bed, no acute issue Objective Vitals Vital Signs Date Time Temp Pulse Resp B/P (MAP) Pulse Ox O2 Delivery O2 Flow Rate FiO2 01/29/18 16:00 97.9 89 18 132/83 (99) 97 01/29/18 12:00 98.1 84 18 141/87 (105) 96 01/29/18 08:00 98.2 64 18 136/77 (96) 97 01/29/18 05:29 82 01/29/18 04:00 98.1 67 18 130/74 (92) 98 01/29/18 00:00 97.9 73 18 131/83 (99) 97 01/29/18 00:00 76 01/28/18 20:00 98.2 78 18 154/87 (109) 97 01/28/18 20:00 86 I/O 01/28/18 01/28/18 01/28/18 01/29/18 01/29/18 01/29/18 07:00 15:00 23:00 07:00 15:00 23:00 Intake Total 60 ml 120 ml 1000 ml 1200 ml Balance 60 ml 120 ml 1000 ml 1200 ml Intake Oral 60 ml 120 ml 1200 ml IV Total 1000 ml # Voids 3 5 1 2 6 Result Diagram: 01/27/18 1320 01/27/18 1320 Objective Remarks GENERAL: This is a well-nourished, well-developed patient, in no apparent distress. SKIN: No rashes, warm and dry HEAD: Atraumatic. Normocephalic. EYES: Pupils equal round and reactive. Extraocular motions intact. No scleral icterus. ENT: Nose without bleeding, or drainage, Airway patent. NECK: Trachea midline. Supple CARDIOVASCULAR: Regular rate and rhythm without murmurs, gallops, or rubs. RESPIRATORY: Fair air entry bilaterally. No wheezes, rales, or rhonchi. GASTROINTESTINAL: Abdomen soft, non-tender, nondistended. Positive bowel sounds MUSCULOSKELETAL: Extremities without clubbing, cyanosis, or edema. Pedal pulses appreciated NEUROLOGICAL: Awake and alert. Moves all extremity. Normal speech.no focal neurological deficit A/P Problem List: (1) Cellulitis of right upper extremity ICD Code: L03.113 - Cellulitis of right upper limb Status: Acute (2) Abscess of right upper arm and forearm ICD Code: L02.413 - Cutaneous abscess of right upper limb Status: Acute (3) Sepsis ICD Code: A41.9 - Sepsis Status: Acute (4) Polysubstance abuse ICD Code: F19.10 - Other psychoactive substance abuse, uncomplicated Status: Acute (5) IV drug user ICD Code: F19.90 - IV drug user Status: Acute Assessment and Plan 42-year-old male admitted secondary to right bicep abscess and cellulitis, with sepsis. 01/29: Continue IV antibiotic, follow orthopedic and ID the recommendation, monitor temperature Sepsis Treat infection Follow vital signs closely IV hydration Right biceps abscess Status post I&D by or so appreciate follow-up Status post wound VAC placement IV antibiotic per ID Vanco Zosyn Ortho Surgical following Pain management Nicotine dependence NicoDerm as needed for any withdrawal DVT prophylaxis SCDs for now, Lovenox after I&D Lisbeth Butler MD Jan 29, 2018 19:10
[2018-01-30] VITALS (9 sets, daily range): BP systolic 116–140; BP diastolic 68–76; PULSE 67–107; RESP 18–22; TEMP 98–98.4; O2SAT 96–100
[2018-01-30] MEDS: SODIUM CHLOR 0.9% 1000 ML INJ 1,000 ML IV SCH ×2 (01:35→13:30)
[2018-01-30] MEDS: HYDROmorphone HCL PF 2 MG/ML VIAL IV PUSH PRN ×5 (03:15→21:09)
[2018-01-30] MEDS ORDERED: PHARMACY ORDERED LAB ONE (04:45)
[2018-01-30] MEDS: VANCOMYCIN INJ 1,250 MG in SODIUM CHLOR 0.9% 250 ML INJ 250 ML IV SCH ×2 (05:29→16:11)
[2018-01-30 05:47] LABS: CREATININE 0.76 MG/DL (0.60-1.30)
[2018-01-30] MEDS: NICOTINE 21 MG/24 HR PATCH T-DERMAL SCH (09:00)
[2018-01-30] MEDS: SODIUM CHLORIDE 0.9% FLUSH 10 ML FLUSH IV FLUSH SCH ×2 (09:00→21:00)
[2018-01-30] MEDS: REMOVE OLD PATCH T-DERMAL SCH (09:00)
[2018-01-30] MEDS: DOCUSATE SODIUM 50 MG/SENNA 8.6 MG TAB PO SCH ×2 (09:21→21:00)
[2018-01-30] MEDS: LACTOBACILLUS ACIDOPHILUS TAB PO SCH ×3 (09:21→16:11)
[2018-01-30] MEDS: MULTIVITAMINS/MINERALS THERAPEUTIC TAB PO SCH (09:21)
[2018-01-30] MEDS: MORPHINE SULFATE 30 MG CONTROLLED RELEASE TAB PO SCH ×2 (09:21→21:09)
[2018-01-30] MEDS: LACTATED RINGER'S 1000 ML INJ 1,000 ML IV SCH ×2 (11:40→21:42)
--- NOTE | 2018-01-30 13:42 | PD.WCN.NOT ---
Wound Consult Description: Received consult today 01/30/2018 for wound management with need for initial wound VAC. Communicated with: RENE ford, Doctor Janett Butler RN charge nurse, and Immanuel LOPEZ spoke with Doctor Nikita Gómez Additional Information: Attempted to remove wound VAC dressing in place R upper inner arm. Immanuel LOPEZ attempted removal of VAC dressing at ~0845 this morning. Patient is not tolerating wound VAC dressing removal due to pain.Immanuel LOPEZ instilled normal saline in granufoam to loosen granufoam in attempt to soak for removal. Allowed to soak ~30 minutes before returning and attempting remove granufoam dressing for the second time. Pain medication was given by RENE ford as ordered and teletypewriter operator and Immanuel LOPEZ attempted to remove VAC dressing for the third time. Patient presents with one wound to inner upper arm with granufoam that is adherent to wound base undermined in a tissue tunnel that opens proximally to give the appearance of two wounds. Normal saline was instilled for a fourth time to loosen granufoam in final attempt at granufoam removal. Forming Roll Operator Heavy Duty able to remove granufoam from visualized open wound only. Unable to remove granufoam from tissue tunnel. Granufoam in tissue tunnel is firmly adherent. Patient is not tolerating any attempt to remove granufoam from tissue tunnel. Patient has been premedicated for pain as noted above and is still unable to tolerate complete removal of granufoam at bedside. Orthopedic physicians notified.Moist gauze was applied wound bed not covered by granufoam and then dry gauze was applied. ABD pad was applied over dry 4x4 gauze and dressing was secured with rolled gauze and tape. Kelly Lambert Jan 30, 2018 13:42
--- NOTE | 2018-01-30 14:17 | PD.WCN.NOT ---
Wound Consult Description: Received consult today 01/30/2018 for wound management with need for initial wound VAC. Communicated with: , Janett Garibay charge nurse [address] [place] [address] ,Ilda RN, Recommendation: Return to OR for Vac change Additional Information: Patient was seen on [address] [place] [address] @ ~0845 this am by newswriter for initial wound vac change post OR.Nursing orders were placed by 01/25/2018 for wound Vac to be changed Friday 01/26 and then every Mon,,Mon no notes found stating Vac had been changed prior to newswriter arrival.Patient was medicated with Dilaudid 20 min prior to writers arrival.Moisten gauze used to help with the removal of draping with no success due to patient extreme discomfort.Adhesive remover used to removed draping with minimal success.Patient was unable to tolerated complete removal of draping due to severe pain.Normal saline instilled under draping for ~30min.Patient was given oral Morphine time released. Apn returned to patients room at ~930 and was able to Lift draping enough to instill normal saline on sponge.Apn was able to remove draping with copious amount of normal saline and adhesive remover.Severe pain verbalized by patient.Apn attempted to gently lift edges of sponge in which were firmly adhered to tissue bed.Patient requested newswriter comes back when patient is able to get dose of next dose of Dilaudid due to severe pain..Wound site covered with ABD for protection. and Ilda LÓPEZ notified of of patient status and newswriter recommendation of possible need for sponge removal in OR. recommended newswriter reaches out to .Call placed to office option of leaving message used. Apn returned to patient room at ~1100 with Kelly LÓPEZ,[facility] for assistance.Patient w3as medicated with Dilaudid.ABD removed from wound site and copious amount of normal saline instill into granular foam sponge.Apn attempted to remove adhered sponge using sterile Q-tip and tongue depressor.Apn was able to remove ~2 inch of sponge till patient requested to stop due to severe pain.TAO Mendoza RN attempted to loosen sponge with finger tips and cotton tip applicator with minimal success due to extreme discomfort. Apn contacted office.Return call from Jennyfer states that wound vac should have been change prior to today newswriter agree. stated he will not be able to come in today but to please use fingers to loosen sponge.This is a bedside procedure.Dressing should be changed and Vac needs to be placed per patient care plan. Nurse gardening manager Janett notified as well as recommendation to place call to whom is software consultant today.Return call from states he will be in OR for the rest of day and Apn needed to reach back out to . Patient is refusing for anybody including newswriter and Kelly LÓPEZ,[facility] to touch wound site anymore with out being sedated. Apn and Kelly LÓPEZ,[facility] met with nurse manager Rowland and .Second call placed to message left with Supriya product sales representative for .No return call as of 1435.With the recommendation from and Nurse gardening manager Janett to excel this situation newswriter needs to contact .Message left with assistance regarding situation.Apn applied wet to dry dressing to exposed tissue bed. Apn will follow up in AM. Neg Pressure Wound Therapy Wound Location Wound Location: Received consult today 01/30/2018 for wound management with need for initial wound VAC. Immanuel Silver [facility] Jan 30, 2018 14:17
--- NOTE | 2018-01-30 15:40 | HHI.PR ---
Subjective Remarks Follow-up on biceps abscess status post I&D Today I discussed with the wound care who was trying to change the wound VAC however he has an issue with dressings on getting adhered to the muscle so she recommended orthopedic to see patient Attending orthopedic Dr. Langley has been contacted but he is out of town, we tried to call Dr. Worthy. Covering but he was in surgery, discussed with charge nurse and wound care Objective Vitals Vital Signs Date Time Temp Pulse Resp B/P (MAP) Pulse Ox O2 Delivery O2 Flow Rate FiO2 01/30/18 11:33 98.2 92 18 116/69 (85) 98 01/30/18 07:45 98.4 69 18 119/68 (85) 96 01/30/18 04:00 98.1 67 18 126/74 (91) 98 01/30/18 00:30 74 01/30/18 00:00 98.3 77 18 130/68 (88) 98 01/29/18 20:30 80 01/29/18 20:00 98.0 71 19 135/72 (93) 98 01/29/18 16:00 97.9 89 18 132/83 (99) 97 I/O 01/29/18 01/29/18 01/29/18 01/30/18 01/30/18 01/30/18 07:00 15:00 23:00 07:00 15:00 23:00 Intake Total 1000 ml 1200 ml Output Total 650 ml Balance 1000 ml 1200 ml -650 ml Intake Oral 1200 ml IV Total 1000 ml Output Urine Total 650 ml # Voids 2 6 # Bowel Movements 0 Result Diagram: 01/27/18 1320 01/30/18 0500 A/P Problem List: (1) Cellulitis of right upper extremity ICD Code: L03.113 - Cellulitis of right upper limb Status: Acute (2) Abscess of right upper arm and forearm ICD Code: L02.413 - Cutaneous abscess of right upper limb Status: Acute (3) Sepsis ICD Code: A41.9 - Sepsis Status: Acute (4) Polysubstance abuse ICD Code: F19.10 - Other psychoactive substance abuse, uncomplicated Status: Acute (5) IV drug user ICD Code: F19.90 - IV drug user Status: Acute Assessment and Plan 42-year-old male admitted secondary to right bicep abscess and cellulitis, with sepsis. 01/30: Today I discussed with the wound care who was trying to change the wound VAC however he has an issue with dressings on getting adhered to the muscle so she recommended orthopedic to see patient Attending orthopedic Dr. Langley has been contacted but he is out of town, we tried to call Dr. Worthy. Covering but he was in surgery, discussed with charge nurse and wound care. Continue pain management, IV antibiotic, follow orthopedic and ID the recommendation Sepsis Treat infection Follow vital signs closely IV hydration Right biceps abscess Status post I&D by or so appreciate follow-up Status post wound VAC placement IV antibiotic per ID Vanco Zosyn Ortho Surgical following Pain management Nicotine dependence NicoDerm as needed for any withdrawal DVT prophylaxis SCDs for now, Lovenox after I&D Lisbeth Butler MD Jan 30, 2018 15:40
--- NOTE | 2018-01-30 18:40 | ECHRPT ---
Indication: POSS SEPSIS, ENDOCARDITIS CONCLUSIONS The left ventricular systolic function is normal with an estimated ejection fraction in the range of 55-60%. Left ventricular diastolic function parameters are normal. Trace aortic valve regurgitation. There is trace tricuspid valve regurgitation. BP: 126 / 74 HR: 67 Rhythm: Sinus MEASUREMENTS (Male / Female) Normal Values Technical Quality:Fair 2D ECHO LV Diastolic Diameter PLAX 4.4 cm 4.2 - 5.9 / 3.9 - 5.3 cm LV Systolic Diameter PLAX 2.8 cm IVS Diastolic Thickness 1.0 cm 0.6 - 1.0 / 0.6 - 0.9 cm LVPW Diastolic Thickness 1.0 cm 0.6 - 1.0 / 0.6 - 0.9 cm LV Relative Wall Thickness 0.4 RV Internal Dim ED PLAX 3.2 cm LVOT Diameter 1.9 cm Aortic Root Diameter 2.8 cm LA Systolic Diameter LX 4.0 cm 3.0 - 4.0 / 2.7 - 3.8 cm M-MODE AV Cusp Separation MM 2.1 cm DOPPLER AV Peak Velocity 149.0 cm/s AV Peak Gradient 8.9 mmHg AV Mean Gradient 4.0 mmHg AV Velocity Time Integral 23.8 cm LVOT Peak Velocity 130.0 cm/s LVOT Peak Gradient 6.8 mmHg LVOT Velocity Time Integral 21.5 cm AV Area Cont Eq vti 2.6 cm AV Area Cont Eq pk 2.5 cm Mitral E Point Velocity 80.5 cm/s Mitral A Point Velocity 83.9 cm/s Mitral E to A Ratio 1.0 LV E' Lateral Velocity 14.5 cm/s Mitral E to LV E' Lateral Ratio 5.6 LV E' Septal Velocity 7.0 cm/s Mitral E to LV E' Septal Ratio 11.5 TR Peak Velocity 246.0 cm/s TR Peak Gradient 24.2 mmHg Right Atrial Pressure 10.0 mmHg Pulmonary Artery Systolic Pressu 34.2 mmHg Right Ventricular Systolic Press 34.2 mmHg PV Peak Velocity 114.0 cm/s PV Peak Gradient 5.2 mmHg FINDINGS LEFT VENTRICLE Normal left ventricular size. Wall thickness is normal. The left ventricular systolic function is normal with an estimated ejection fraction in the range of 55-60%. Left ventricular diastolic function parameters are normal. RIGHT VENTRICLE Normal right ventricular size and systolic function. LEFT ATRIUM The left atrial size is normal. RIGHT ATRIUM The right atrial size is normal. ATRIAL SEPTUM No atrial level shunt is demonstrated by color flow Doppler interrogation. AORTA The aortic root and proximal ascending aorta are normal in size on limited imaging. MITRAL VALVE Structurally normal mitral valve. No mitral valve stenosis or regurgitation. AORTIC VALVE Trileaflet aortic valve. Trace aortic valve regurgitation. No aortic valve stenosis. TRICUSPID VALVE Structurally normal tricuspid valve. There is trace tricuspid valve regurgitation. The estimated pulmonary arterial pressure is 34.2 mmHg. PULMONARY VALVE No pulmonary valve regurgitation or stenosis. VESSELS The inferior vena cava is normal in size. PERICARDIUM No pericardial effusion. Jovan Watson DO (Electronically Signed) Final Date:30 January 2018 18:39
--- NOTE | 2018-01-30 18:54 | PD.ORT.PN ---
Subjective Subjective Remarks No complaint. Wound care nurse having difficulty removing sponge. Case discussed with counseling case manager of the floor and wound care nurse Objective Vitals Vital Signs Date Time Temp Pulse Resp B/P (MAP) Pulse Ox O2 Delivery O2 Flow Rate FiO2 01/30/18 16:06 98.4 102 18 128/76 (93) 99 01/30/18 11:33 98.2 92 18 116/69 (85) 98 01/30/18 08:00 77 01/30/18 07:45 98.4 69 18 119/68 (85) 96 01/30/18 04:00 98.1 67 18 126/74 (91) 98 01/30/18 00:30 74 01/30/18 00:00 98.3 77 18 130/68 (88) 98 01/29/18 20:30 80 01/29/18 20:00 98.0 71 19 135/72 (93) 98 I/O 01/29/18 01/29/18 01/29/18 01/30/18 01/30/18 01/30/18 07:00 15:00 23:00 07:00 15:00 23:00 Intake Total 1000 ml 1200 ml 565 ml Output Total 650 ml Balance 1000 ml 1200 ml -650 ml 565 ml Intake Oral 1200 ml IV Total 1000 ml 565 ml Output Urine Total 650 ml # Voids 2 6 # Bowel Movements 0 1 Result Diagram: 01/27/18 1320 01/30/18 0500 Objective Remarks Wound VAC right upper arm intact. Sponge intact, vacuum removed Sensation normal right arm. Motor strength normal right arm Assessment & Plan Assessment and Plan Abscess of the right upper arm. Cellulitis of the right arm. History of polysubstance abuse and IV drug abuse. SURGERY: I&D right arm skin, subcu and muscle. Placement of wound VAC: POD #5 PLAN: Attempted to remove sponge today, but the patient would not let me touch him. He insisted that this be taken out with IV sedation or an anesthetic. IV antibiotics per infectious disease I will be unable to write pain medication for this patient. The patient has a long history of a IV drug abuse and polysubstance abuse. We will try to make arrangements for removal of sponge in OR under sedation, tomorrow This patient might need skin grafting at some point. Orthopedically stable Nikita Langley MD Jan 30, 2018 18:53
[2018-01-31] VITALS (8 sets, daily range): BP systolic 105–120; BP diastolic 53–66; PULSE 82–108; RESP 18–20; TEMP 98.3–98.8; O2SAT 96–99
[2018-01-31] MEDS: HYDROmorphone HCL PF 2 MG/ML VIAL IV PUSH PRN ×5 (01:31→20:31)
[2018-01-31] MEDS: SODIUM CHLOR 0.9% 1000 ML INJ 1,000 ML IV SCH ×2 (01:33→13:20)
[2018-01-31] MEDS: VANCOMYCIN INJ 1,250 MG in SODIUM CHLOR 0.9% 250 ML INJ 250 ML IV SCH ×2 (04:24→16:50)
[2018-01-31] MEDS ORDERED: CHLORHEXIDINE GLUCONATE 2 % 1 PACK (2 CLOTHS) TOPICAL PRN (06:15)
[2018-01-31] MEDS ORDERED: LACTATED RINGER'S 1000 ML IV PRN (06:15)
[2018-01-31] MEDS ORDERED: SODIUM CHLORID 0.9% 500 ML IV PRN (06:15)
[2018-01-31] MEDS ORDERED: POVIDONE IODINE 5% (ANTISEPSIS KIT) 4 APPLICATIONS EACH NARE PRN (06:15)
[2018-01-31 08:20] LABS: CREATININE 0.76 MG/DL (0.60-1.30)
[2018-01-31] MEDS: MORPHINE SULFATE 30 MG CONTROLLED RELEASE TAB PO SCH ×2 (09:00→20:31)
[2018-01-31] MEDS: DOCUSATE SODIUM 50 MG/SENNA 8.6 MG TAB PO SCH ×2 (09:00→20:32)
[2018-01-31] MEDS: NICOTINE 21 MG/24 HR PATCH T-DERMAL SCH (09:00)
[2018-01-31] MEDS: REMOVE OLD PATCH T-DERMAL SCH (09:00)
[2018-01-31] MEDS: LACTOBACILLUS ACIDOPHILUS TAB PO SCH ×3 (09:00→16:47)
[2018-01-31] MEDS: MULTIVITAMINS/MINERALS THERAPEUTIC TAB PO SCH (09:00)
[2018-01-31] MEDS: SODIUM CHLORIDE 0.9% FLUSH 10 ML FLUSH IV FLUSH SCH ×2 (09:00→20:32)
[2018-01-31] MEDS ORDERED: ACETAMINOPHEN 1000 MG/100 ML 100 ML IV ONE (09:07)
[2018-01-31] MEDS ORDERED: FAMOTIDINE 20 MG/2 ML VIAL ONE (09:08)
[2018-01-31] MEDS ORDERED: MIDAZOLAM HCL 2 MG/2 ML VIAL ONE (09:08)
[2018-01-31] MEDS ORDERED: GENTAMICIN SULFATE 80 MG/2 ML VIAL ONE (09:11)
[2018-01-31] MEDS ORDERED: ceFAZolin INJ 1,000 MG VIAL ONE (09:11)
--- NOTE | 2018-01-31 10:17 | PD.OP ---
cc: Hansel Cabrera MD Operative Report Date of Surgery: Jan 31, 2018 Preoperative Diagnosis: Right upper extremity abscess status post irrigation and debridement Postoperative Diagnosis: Same Procedure: Staged removal of wound VAC sponge with sharp debridement of skin, subtendinous tissue, and muscle. Anesthesia: General Surgeon: Hansel Cabrera Sample Wrapper(s): VIC Toro The surgical procedure was assisted by my Advanced Registered Nurse Practitioner. My COMPUTER SUPPORT TECHNICIAN presence was necessary throughout this case for the manipulation and positioning of the surgical extremity. My COMPUTER SUPPORT TECHNICIAN was assisting me throughout the duration of this procedure. The skill set of an Advance Registered Nurse Practitioner was medically necessary to complete this procedure. During the surgical case, the surgical rn was working at the back table and the Advance Registered Nurse Practitioner was directly assisting me. Operation and Findings: This patient had a previous irrigation and debridement with application of wound VAC. There were attempts to remove the wound VAC sponge on the floor but the patient would not tolerate this. The patient was being brought back for a staged irrigation and debridement with removal of wound VAC sponge in preparation for consideration of skin grafting. I admit the patient on the floor and we discussed the risks and benefits of surgical management. He understood risks include but not limited to injury to nerves, blood vessels, bleeding, continued infection, need for further surgeries , medical complications such as heart attack, stroke, . The patient wanted to move forward with surgical management. The patient was brought to the operative theater. General anesthesia was administered. The patient received intravenous Ancef. The patient was on standing vancomycin. We identified that a portion of the wound VAC sponge was still deep in the skin of the right upper extremity. We removed this prior to prepping and draping. There was no erythema of the skin. There was no gross purulence. Once prepped and draped we further explored the arm. There is very little muscle necrosis which required minimal sharp debridement. There was no abscess noted. This debridement was in the anterolateral aspect of the biceps musculature. We probed deep using blunt finger dissection to make sure there were no deep abscesses. We cleaned under the intervening skin bridge between the proximal and distal wound. The proximal wound had very nice granulation tissue. The distal wound had hematoma which was evacuated. We irrigated with 3 L of saline. Blood loss was minimal. We then dressed the wounds with moist to dry dressings. Postoperative plan is for a staged skin grafting. Hansel Cabrera MD Jan 31, 2018 10:17
[2018-01-31] MEDS ORDERED: DO NOT ADM ANY ANTICOAGULANT DRUGS PRN (10:18)
[2018-01-31] MEDS: LACTATED RINGER'S 1000 ML INJ 1,000 ML IV SCH ×2 (11:12→20:32)
[2018-01-31] MEDS ORDERED: DEXAMETHASONE SOD PHOS 4 MG/ML VIAL IV ONE (12:00)
[2018-01-31] MEDS ORDERED: ONDANSETRON HCL 4 MG/2 ML VIAL IV ONE (12:00)
[2018-01-31] MEDS ORDERED: LIDOCAINE HCL 1% PF 5 ML SYRINGE OTHER ONE (12:00)
[2018-01-31] MEDS ORDERED: KETOROLAC TROMETHAMINE 30 MG/ML (IVP) VIAL IV PUSH ONE (12:00)
[2018-01-31] MEDS ORDERED: PHENYLEPH/NS 1000 MCG/10 ML SYR IV ONE (12:00)
[2018-01-31] MEDS ORDERED: PROPOFOL 200 MG/20 ML AMP IV ONE (12:00)
--- NOTE | 2018-01-31 12:58 | HHI.IDPN ---
Note Infectious Disease Note Patient underwent removal of the wound VAC today. RN reports that he was playing of severe pain when the vacuum was being changed. He is currently somnolent. Afebrile. 2D echocardiogram without evidence of endocarditis. Wound culture has strep viridans group. 01/24 blood culture has staph aureus in one set and another set has strep viridans. 01/25 culture from the right arm has strep viridans. Presented to the emergency department with pain and swelling of his right upper extremity and redness and warmth also. The patient was seen in this emergency department on 01/20. At the time, he was evaluated for dehydration. He was felt to likely have cellulitis versus lymphangitis versus abscess of the right biceps region. He was given a prescription for Bactrim and he was discharged. He presented to [facility] Emergency Department after that and he was going to be admitted for surgery, but he left against medical advice. He was taken to surgery today and he underwent I&D of the right bicep abscess and a wound VAC was applied to the wound. PAST MEDICAL HISTORY: Polysubstance abuse, multiple drainages of abscess of the right hand and also the leg. ALLERGIES: CODEINE. MEDICATIONS: Antibiotic: Vancomycin REVIEW OF SYSTEMS: Significant for pain in the right upper extremity. Otherwise, negative. Objective: Vital Signs Date Time Temp Pulse Resp B/P (MAP) Pulse Ox O2 Delivery O2 Flow Rate FiO2 01/31/18 12:09 98.5 83 20 120/64 (82) 97 01/31/18 10:46 98.1 83 16 112/67 (82) 100 Room Air 01/31/18 10:30 106 17 116/65 (82) 100 Room Air 01/31/18 10:22 98.1 98 14 115/62 (79) 100 Room Air 01/31/18 08:08 98.8 85 20 109/62 (78) 98 01/31/18 04:00 98.4 82 18 114/60 (78) 96 01/31/18 00:30 99 01/31/18 00:00 98.3 91 20 120/66 (84) 97 01/30/18 20:30 99 01/30/18 20:00 98.0 107 22 140/73 (95) 100 01/30/18 16:06 98.4 102 18 128/76 (93) 99 Laboratory Tests Test 01/30/18 05:00 01/31/18 07:28 Creatinine 0.76 MG/DL 0.76 MG/DL Estimat Glomerular Filtration Rate 114 ML/MIN 114 ML/MIN PHYSICAL EXAMINATION: GENERAL: No acute distress. Awake and alert. HEENT: The head is atraumatic. Extraocular muscles grossly intact. Pupils reactive to light. No icterus. Oropharynx - No visible lesions. NECK: Supple without swelling. LUNGS: Clear breath sounds. HEART: Regular S1 and S2 without audible murmurs. ABDOMEN: Bowel sounds present. Soft, nontender EXTREMITIES: The right arm above the elbow has dressing in place. Swelling of the right humerus. SKIN: No diffuse rash. NEUROLOGIC: No gross focal findings. PSYCHIATRIC: Calm and cooperative. IMPRESSION: 1. Bacteremia due to Staphylococcus aureus. 1 of 4 bottles. 2. Bacteremia due to strep viridans. 3. Abscess of the left humerus with cellulitis due to strep viridans. The patient is status post incision and drainage for extensive cellulitis and including debridement of the muscle of the right upper arm. 4. Polysubstance abuse. Denies IV drugs. RECOMMENDATIONS: 1. Continue vancomycin. 2. Switch to ceftriaxone IV tomorrow and treat with IV treatment until February 13. Outpatient IV antibiotics can be arranged. Discussed with Dr. José. Raj De La Fuente MD Jan 31, 2018 12:58
--- NOTE | 2018-01-31 13:33 | HHI.PR ---
Subjective Remarks Follow-up for right upper extremity abscess. Patient underwent wound VAC sponge removal earlier today. Currently he is doing well. Denies any chest pain, shortness of breath, fever or chills. Objective Vitals Vital Signs Date Time Temp Pulse Resp B/P (MAP) Pulse Ox O2 Delivery O2 Flow Rate FiO2 01/31/18 12:09 98.5 83 20 120/64 (82) 97 01/31/18 10:46 98.1 83 16 112/67 (82) 100 Room Air 01/31/18 10:30 106 17 116/65 (82) 100 Room Air 01/31/18 10:22 98.1 98 14 115/62 (79) 100 Room Air 01/31/18 08:08 98.8 85 20 109/62 (78) 98 01/31/18 04:00 98.4 82 18 114/60 (78) 96 01/31/18 00:30 99 01/31/18 00:00 98.3 91 20 120/66 (84) 97 01/30/18 20:30 99 01/30/18 20:00 98.0 107 22 140/73 (95) 100 01/30/18 16:06 98.4 102 18 128/76 (93) 99 I/O 01/30/18 01/30/18 01/30/18 01/31/18 01/31/18 01/31/18 07:00 15:00 23:00 07:00 15:00 23:00 Intake Total 565 ml 750 ml Output Total 650 ml 50 ml Balance -650 ml 565 ml 700 ml IV Total 565 ml 750 ml Output Urine Total 650 ml 0 ml Estimated Blood Loss 50 ml # Voids 2 2 # Bowel Movements 0 2 0 Result Diagram: 01/27/18 1320 01/31/18 0728 Imaging Last Impressions Chest X-Ray 01/24/18 0327 Signed Impressions: Service Date/Time: Wednesday, January 24, 2018 03:33 - CONCLUSION: Mild bibasilar atelectasis. Yakov Tee MD Objective Remarks GENERAL: Alert, oriented 3, NAD. SKIN: Warm and dry. HEAD: Normocephalic. EYES: No scleral icterus. No injection or drainage. NECK: Supple, trachea midline. No JVD or lymphadenopathy. CARDIOVASCULAR: Regular rate and rhythm without murmurs, gallops, or rubs. RESPIRATORY: Breath sounds equal bilaterally. No accessory muscle use. GASTROINTESTINAL: Abdomen soft, non-tender, nondistended. MUSCULOSKELETAL: No cyanosis, or edema. Right upper ext dressing on. BACK: Nontender without obvious deformity. No CVA tenderness. Procedures 01/25/2018 Irrigation and debridement of skin subcu tissue and muscle of the right upper arm. Placement of extensive wound VAC measuring 12 x 6 cm 01/31/2018 Staged removal of wound VAC sponge with sharp debridement of skin, subtendinous tissue, and muscle. A/P Problem List: (1) Cellulitis of right upper extremity ICD Code: L03.113 - Cellulitis of right upper limb Status: Acute (2) Abscess of right upper arm and forearm ICD Code: L02.413 - Cutaneous abscess of right upper limb Status: Acute (3) Sepsis ICD Code: A41.9 - Sepsis Status: Acute (4) Polysubstance abuse ICD Code: F19.10 - Other psychoactive substance abuse, uncomplicated Status: Acute (5) IV drug user ICD Code: F19.90 - IV drug user Status: Acute Assessment and Plan 42-year-old male admitted secondary to right bicep abscess and cellulitis, with sepsis. Sepsis (Tachycardia, WBC 17.5K, Right upper ext cellulitis/abscess). Right biceps abscess Bacteremia due to strep viridans Status post I&D and wound vac removal on 01/25 and 01/31 respectively. Per ID recommendations, will d/c Vancomycin after today and start Ceftriaxone 2g Q24hrs starting 02/01/2018. Morphine and Dilaudid PRN for pain. Nicotine dependence NicoDerm as needed for any withdrawal Full code. SCDs. Fabricio José DO Jan 31, 2018 1:33 pm
[2018-02-01] VITALS (7 sets, daily range): BP systolic 97–129; BP diastolic 55–72; PULSE 73–110; RESP 16–20; TEMP 97.4–99; O2SAT 16–100
[2018-02-01] MEDS: HYDROmorphone HCL PF 2 MG/ML VIAL IV PUSH PRN ×5 (00:45→18:32)
[2018-02-01] MEDS: SODIUM CHLOR 0.9% 1000 ML INJ 1,000 ML IV SCH ×2 (01:15→13:10)
[2018-02-01] MEDS: VANCOMYCIN INJ 1,250 MG in SODIUM CHLOR 0.9% 250 ML INJ 250 ML IV SCH (04:08)
[2018-02-01] MEDS: cefTRIAXone INJ 2,000 MG in SODIUM CHLORIDE 0.9% INJ 100 ML IV SCH (08:15)
[2018-02-01] MEDS: LACTATED RINGER'S 1000 ML INJ 1,000 ML IV SCH ×2 (08:17→22:30)
[2018-02-01] MEDS: SODIUM CHLORIDE 0.9% FLUSH 10 ML FLUSH IV FLUSH SCH ×2 (08:20→20:58)
[2018-02-01] MEDS: REMOVE OLD PATCH T-DERMAL SCH (08:22)
[2018-02-01] MEDS: DOCUSATE SODIUM 50 MG/SENNA 8.6 MG TAB PO SCH ×2 (08:25→20:58)
[2018-02-01] MEDS: NICOTINE 21 MG/24 HR PATCH T-DERMAL SCH (08:26)
[2018-02-01] MEDS: MULTIVITAMINS/MINERALS THERAPEUTIC TAB PO SCH (08:26)
[2018-02-01] MEDS: LACTOBACILLUS ACIDOPHILUS TAB PO SCH ×3 (08:26→18:00)
[2018-02-01] MEDS: MORPHINE SULFATE 30 MG CONTROLLED RELEASE TAB PO SCH ×2 (08:28→21:00)
--- NOTE | 2018-02-01 09:13 | HHI.PR ---
Subjective Remarks He is in bed. No fever or chills overnight. Pain is fairly controlled by medications. Eating fairly well. No nausea vomiting no diarrhea constipation. Objective Vitals Vital Signs Date Time Temp Pulse Resp B/P (MAP) Pulse Ox O2 Delivery O2 Flow Rate FiO2 02/01/18 07:58 97.9 73 20 104/57 (73) 98 02/01/18 04:51 99.0 86 18 97/55 (69) 96 02/01/18 00:48 98.8 98 20 119/66 (83) 100 01/31/18 20:28 98.4 108 20 105/53 (70) 99 01/31/18 16:30 98.3 85 20 109/57 (74) 96 01/31/18 16:21 98 21 01/31/18 12:09 98.5 83 20 120/64 (82) 97 01/31/18 10:46 98.1 83 16 112/67 (82) 100 Room Air 01/31/18 10:30 106 17 116/65 (82) 100 Room Air 01/31/18 10:22 98.1 98 14 115/62 (79) 100 Room Air I/O 01/31/18 01/31/18 01/31/18 02/01/18 02/01/18 02/01/18 07:00 15:00 23:00 07:00 15:00 23:00 Intake Total 750 ml 480 ml Output Total 50 ml Balance 700 ml 480 ml Intake Oral 480 ml IV Total 750 ml Output Urine Total 0 ml Estimated Blood Loss 50 ml # Voids 2 3 1 # Bowel Movements 0 0 Result Diagram: 01/31/18 0728 Imaging Last Impressions Chest X-Ray 01/24/18 0327 Signed Impressions: Service Date/Time: Wednesday, January 24, 2018 03:33 - CONCLUSION: Mild bibasilar atelectasis. Yakov Tee MD Objective Remarks GENERAL: Alert, oriented 3, NAD. CARDIOVASCULAR: Regular rate and rhythm without murmurs, gallops, or rubs. RESPIRATORY: Breath sounds equal bilaterally. No accessory muscle use. GASTROINTESTINAL: Abdomen soft, non-tender, nondistended. MUSCULOSKELETAL: No cyanosis, or edema. Right upper ext dressing on. BACK: Nontender without obvious deformity. No CVA tenderness. Procedures 01/25/2018 Irrigation and debridement of skin subcu tissue and muscle of the right upper arm. Placement of extensive wound VAC measuring 12 x 6 cm 01/31/2018 Staged removal of wound VAC sponge with sharp debridement of skin, subtendinous tissue, and muscle. A/P Problem List: (1) Cellulitis of right upper extremity ICD Code: L03.113 - Cellulitis of right upper limb Status: Acute (2) Abscess of right upper arm and forearm ICD Code: L02.413 - Cutaneous abscess of right upper limb Status: Acute (3) Sepsis ICD Code: A41.9 - Sepsis Status: Acute (4) Polysubstance abuse ICD Code: F19.10 - Other psychoactive substance abuse, uncomplicated Status: Acute (5) IV drug user ICD Code: F19.90 - IV drug user Status: Acute Assessment and Plan 42-year-old male admitted secondary to right bicep abscess and cellulitis, with sepsis. Sepsis (Tachycardia, WBC 17.5K, Right upper ext cellulitis/abscess). Right biceps abscess Bacteremia due to strep viridans Status post I&D and wound vac removal on 01/25 and 01/31 respectively. Per ID recommendations. DC Vancomycin Ceftriaxone 2g Q24hrs starting 02/01/2018. Morphine and Dilaudid PRN for pain. Nicotine dependence NicoDerm as needed for any withdrawal Full code. DVT ppx - SCDs. DC plan: pending improvement Nakia Dominguez MD Feb 01, 2018 09:13
--- NOTE | 2018-02-01 12:48 | PD.ORT.PN ---
Subjective Subjective Remarks Walking about his room with IV pole in hand. No new complaints. RIght arm pain continues. No new abd pain, CP or SOB. Questions about surgery on his arm. Objective Vitals Vital Signs Date Time Temp Pulse Resp B/P (MAP) Pulse Ox O2 Delivery O2 Flow Rate FiO2 02/01/18 11:25 98.1 87 20 115/56 (75) 96 02/01/18 07:58 97.9 73 20 104/57 (73) 98 02/01/18 04:51 99.0 86 18 97/55 (69) 96 02/01/18 00:48 98.8 98 20 119/66 (83) 100 01/31/18 20:28 98.4 108 20 105/53 (70) 99 01/31/18 16:30 98.3 85 20 109/57 (74) 96 01/31/18 16:21 98 21 I/O 01/31/18 01/31/18 01/31/18 02/01/18 02/01/18 02/01/18 07:00 15:00 23:00 07:00 15:00 23:00 Intake Total 750 ml 480 ml Output Total 50 ml Balance 700 ml 480 ml Intake Oral 480 ml IV Total 750 ml Output Urine Total 0 ml Estimated Blood Loss 50 ml # Voids 2 3 1 # Bowel Movements 0 0 Result Diagram: 01/31/18 0728 Objective Remarks Walking around room without assist Family member at bedside NAD VSS Right Arm Tom/Dressing intact, vacuum removed, some swelling distal, no new erythema +motor hand, +sensation, radial pulse 2/4 Assessment & Plan Ortho Post Op Day #: 7 Problem List: Assessment and Plan Abscess of the right upper arm. Cellulitis of the right arm. History of polysubstance abuse and IV drug abuse. SURGERY: I&D right arm skin, subcu and muscle. Placement of wound VAC: POD #7 (pod#1 sponge removal) Pain moderately controlled. No new complaints. Sponge removed yesterday in OR. Consult plastic surgery for poss split thickness skin graft right arm. IV antibiotics per infectious disease I will be unable to write pain medication for this patient. The patient has a long history of a IV drug abuse and polysubstance abuse. Will follow. Odalis Gonsalves Feb 01, 2018 12:48
[2018-02-02] VITALS: BP 120/76; PULSE 116; RESP 16; TEMP 97.1; O2SAT 99
[2018-02-02] MEDS: HYDROmorphone HCL PF 2 MG/ML VIAL IV PUSH PRN ×3 (00:46→15:04)
[2018-02-02] MEDS: SODIUM CHLOR 0.9% 1000 ML INJ 1,000 ML IV SCH ×2 (00:57→08:32)
[2018-02-02 04:46] VITALS: BP 98/57; PULSE 78; RESP 12; TEMP 98.4; O2SAT 97
[2018-02-02 08:00] VITALS: BP 110/62; PULSE 85; RESP 18; TEMP 98.2; O2SAT 97
--- NOTE | 2018-02-02 08:04 | PD.ORT.PN ---
Subjective Subjective Remarks No complaint. Sponge was removed on 01/31. Case discussed with Dr. Cabrera who felt at that time the patient was ready for split thickness skin graft Plastic surgery consulted Objective Vitals Vital Signs Date Time Temp Pulse Resp B/P (MAP) Pulse Ox O2 Delivery O2 Flow Rate FiO2 02/02/18 04:46 98.4 78 12 98/57 (71) 97 02/02/18 00:00 97.1 116 16 120/76 (91) 99 02/01/18 20:00 97.4 110 16 129/72 (91) 16 02/01/18 15:31 97.9 95 20 115/58 (77) 94 02/01/18 13:04 97 21 02/01/18 11:25 98.1 87 20 115/56 (75) 96 I/O 02/01/18 02/01/18 02/01/18 02/02/18 02/02/18 02/02/18 07:00 15:00 23:00 07:00 15:00 23:00 Intake Total 940 ml Balance 940 ml Intake Oral 940 ml # Voids 1 7 # Bowel Movements 1 Result Diagram: 01/31/18 0728 Objective Remarks Walking around room without assist Family member at bedside NAD VSS Right Arm Tom/Dressing intact. Assessment & Plan Assessment and Plan Abscess of the right upper arm. Cellulitis of the right arm. History of polysubstance abuse and IV drug abuse. SURGERY: I&D right arm skin, subcu and muscle. Placement of wound VAC: POD #8 (pod#2 sponge removal) Pain moderately controlled. No new complaints. Consult plastic surgery for poss split thickness skin graft right arm. IV antibiotics per infectious disease I will be unable to write pain medication for this patient. The patient has a long history of a IV drug abuse and polysubstance abuse. We will sign off at this time and reconsult if new abscess developed in the same area Nikita Langley MD Feb 02, 2018 08:04
[2018-02-02 08:25] LABS: CREATININE 0.83 MG/DL (0.60-1.30)
[2018-02-02] MEDS: cefTRIAXone INJ 2,000 MG in SODIUM CHLORIDE 0.9% INJ 100 ML IV SCH (08:27)
[2018-02-02] MEDS: MORPHINE SULFATE 30 MG CONTROLLED RELEASE TAB PO SCH (08:29)
[2018-02-02] MEDS: LACTOBACILLUS ACIDOPHILUS TAB PO SCH ×2 (08:31→15:04)
[2018-02-02] MEDS: SODIUM CHLORIDE 0.9% FLUSH 10 ML FLUSH IV FLUSH SCH (08:31)
[2018-02-02] MEDS: MULTIVITAMINS/MINERALS THERAPEUTIC TAB PO SCH (08:31)
[2018-02-02] MEDS: DOCUSATE SODIUM 50 MG/SENNA 8.6 MG TAB PO SCH (08:31)
[2018-02-02] MEDS: REMOVE OLD PATCH T-DERMAL SCH (08:32)
[2018-02-02] MEDS: LACTATED RINGER'S 1000 ML INJ 1,000 ML IV SCH (08:32)
[2018-02-02] MEDS: NICOTINE 21 MG/24 HR PATCH T-DERMAL SCH (08:32)
[2018-02-02] MEDS ORDERED: LACT PO (11:53)
[2018-02-02] MEDS ORDERED: MORP1TAB25 PO (11:53)
[2018-02-02] MEDS ORDERED: NICO21DI25 T-DERMAL (11:53)
--- NOTE | 2018-02-02 11:53 | HHI.DS ---
Discharge Summary Admission Date Jan 24, 2018 at 05:06 Discharge Date: Feb 02, 2018 Admitting Diagnosis RUE cellulitis; sepsis; polysubstance abuse (1) Cellulitis of right upper extremity ICD Code: L03.113 - Cellulitis of right upper limb Diagnosis: Secondary Status: Acute (2) Abscess of right upper arm and forearm ICD Code: L02.413 - Cutaneous abscess of right upper limb Diagnosis: Principal Status: Acute (3) Sepsis ICD Code: A41.9 - Sepsis Diagnosis: Secondary Status: Acute (4) Polysubstance abuse ICD Code: F19.10 - Other psychoactive substance abuse, uncomplicated Diagnosis: Secondary Status: Acute (5) IV drug user ICD Code: F19.90 - IV drug user Diagnosis: Secondary Status: Acute Procedures 01/25/2018 Irrigation and debridement of skin subcu tissue and muscle of the right upper arm. Placement of extensive wound VAC measuring 12 x 6 cm 01/31/2018 Staged removal of wound VAC sponge with sharp debridement of skin, subtendinous tissue, and muscle. Brief History - From Admission Mr. Kapoor is a 50-year-old male. He is admitted secondary to abscess at his right biceps extending to reports his right elbow. He has a history of IV drug abuse. He says that the infections not at an area where he typically shoots up , he says it did start at an area where an IV line was attempted to be started. Fevers are present, 100.5F. Tachycardia is present. Leukocytosis is present. Sepsis criteria are met at time of admit. Patient was originally visiting [facility] and had the beginning of her workup there. He says he had one antibiotic treatment, he does not know which antibiotic. CT scan of the arm shows a large right bicep abscess. He left the hospital AMA. He returns to our hospital seeking further treatment due to worsening pain and drainage. No baseline medical problems other than polysubstance abuse. He has been using Bactrim as an outpatient, this has failed. CBC/BMP: 02/02/18 0716 Significant Findings Laboratory Tests Test 01/31/18 07:28 4/27/18 07:16 Imaging Last Impressions Chest X-Ray 01/24/18 0327 Signed Impressions: Service Date/Time: Wednesday, January 24, 2018 03:33 - CONCLUSION: Mild bibasilar atelectasis. Yakov Tee MD PE at Discharge GENERAL: Alert, oriented 3, NAD. CARDIOVASCULAR: Regular rate and rhythm without murmurs, gallops, or rubs. RESPIRATORY: Breath sounds equal bilaterally. No accessory muscle use. GASTROINTESTINAL: Abdomen soft, non-tender, nondistended. MUSCULOSKELETAL: No cyanosis, or edema. Right upper ext dressing on. BACK: Nontender without obvious deformity. No CVA tenderness. Hospital Course 42-year-old male admitted secondary to right bicep abscess and cellulitis, with sepsis. Sepsis (Tachycardia, WBC 17.5K, Right upper ext cellulitis/abscess). Right biceps abscess Bacteremia due to strep viridans Status post I&D and wound vac removal on 01/25 and 01/31 respectively. Per ID recommendations. DC Vancomycin Ceftriaxone 2g Q24hrs starting 02/01/2018. Morphine and Dilaudid PRN for pain. Nicotine dependence NicoDerm as needed for any withdrawal Full code. DVT ppx - SCDs. DC plan: pending improvement Seen by Dr Sanford plastic surgery to follow up as OP. Discussed with Dr De La Fuente, patient can be dC on IV antibiotics at the infusion center. Ceftriaxone 2 gm Q24 hrs end date February 13, 2018. PICC line placed. Instructed to use PICC line only for antibiotics. Pt Condition on Discharge: Stable Discharge Disposition: Discharge Home Discharge Time: > 30 minutes Discharge Instructions DIET: Follow Instructions for: As Tolerated, No Restrictions Activities you can perform: Regular-No Restrictions Follow up Referrals: PCP Follow-up - 2-3 Days Plastic Surgery - 1 Week with Akhil Sanford MD New Medications: Lactobacillus Acidophilus (Acidophilus/l-Sporogenes) 35 Million Cell-25 Million Cell Tab 1 TAB PO TID for probiotic for 30 Days, TAB Morphine ER (Morphine ER) 30 Mg Tab 30 MG PO Q12HR for pain , #10 TAB Nicotine (Eq Nicotine) 21 Mg/24 Hour Dis 1 PATCH T-DERMAL DAILY for smoking cessation , #30 PATCH Discontinued Medications: Sulfamethoxazole-Trimethoprim (Bactrim DS) 800-160 Mg Tab 1 TAB PO BID for Infection, #20 TAB 0 Refills Cosma,Nakia MD Feb 02, 2018 11:53
[2018-02-02 12:00] VITALS: BP 120/65; PULSE 90; RESP 16; TEMP 98.5; O2SAT 95
--- NOTE | 2018-02-02 12:54 | HHI.FF ---
Infusion Therapy Location of Infusion Therapy: Ambulatory Infusion Therapy Order Patient Information Patient Weight 61.4 kg Diagnosis: (1) Cellulitis of right upper extremity Coded Allergies: codeine (Unverified Allergy, Severe, Nausea/Vomiting, 01/24/18) *MDRO Multi-Drug Resistant Organism (Verified Allergy, Unknown, 01/24/18) MRSA Administer Medication Ceftriaxone 2 grams IV q 24 hours Stop Treatment: February 13, 2018 Additional Information Venous access: PICC Line Additional Instructions [x] Peripheral flush and dressing changes per protocol [x] Implanted port and central commercial lines account executive: * Implanted port: 10 ml Normal Saline followed by 5 ml Heparin 100 units/ml Heparin flush after each use and monthly to maintain. [] May leave port accessed during therapy. [] May leave peripheral site accessed for duration of therapy. [x] If patient has SOB or respiratory distress, check oxygen saturation. If less than 90% or clinical signs of respiratory distress, administer oxygen at 2 L/min. via nasal cannula and notify physician. [x] Anaphylaxis/Reaction orders: * Stop infusion. * Keep IV line open with saline flush. * Notify physician. * Monitor vital signs every 15 minutes until symptoms resolve. * Check Oxygen saturation; Oxygen at 2 L/min. via nasal cannula if less than 90% or clinical signs of respiratory distress. * Administer diphenhydramine (Benadryl) 25 mg IV STAT, (unless patient has received as pre-med). May repeat once, if necessary. * Solu-Cortef 250 mg IVP over 30-60 seconds, use 100 mg vials for each dissolution. * Epinephrine (1mg/1 ml) 0.3 mg subcutaneously or IVP now with any signs of respiratory distress. * Check with physician for new additional pre-med orders if patient is re- challenged or re-treated. [x] May remove PICC line when treatment complete, after confirming with Physician. [x] If the patient is admitted to the hospital, the ED, or transferred via [facility] , complete transfer form including medication reconciliation order sheet. Raj De La Fuente MD Feb 02, 2018 12:54
--- NOTE | 2018-02-02 13:27 | HHI.IDPN ---
Note Infectious Disease Note Patient notes pain in his right arm. No other complaints. Afebrile. Wound culture has strep viridans group. 01/24 blood culture has staph aureus in one set and another set has strep viridans. 01/25 culture from the right arm has strep viridans. Presented to the emergency department with pain and swelling of his right upper extremity and redness and warmth also. The patient was seen in this emergency department on 01/20. At the time, he was evaluated for dehydration. He was felt to likely have cellulitis versus lymphangitis versus abscess of the right biceps region. He was given a prescription for Bactrim and he was discharged. He presented to [facility] Emergency Department after that and he was going to be admitted for surgery, but he left against medical advice. He was taken to surgery today and he underwent I&D of the right bicep abscess and a wound VAC was applied to the wound. PAST MEDICAL HISTORY: Polysubstance abuse, multiple drainages of abscess of the right hand and also the leg. ALLERGIES: CODEINE. MEDICATIONS: Antibiotic: Ceftriaxone. REVIEW OF SYSTEMS: Significant for pain in the right upper extremity. Otherwise, negative. Objective: Vital Signs Date Time Temp Pulse Resp B/P (MAP) Pulse Ox O2 Delivery O2 Flow Rate FiO2 02/02/18 12:00 98.5 90 16 120/65 (83) 95 02/02/18 08:00 98.2 85 18 110/62 (78) 97 02/02/18 04:46 98.4 78 12 98/57 (71) 97 02/02/18 00:00 97.1 116 16 120/76 (91) 99 02/01/18 20:00 97.4 110 16 129/72 (91) 16 02/01/18 15:31 97.9 95 20 115/58 (77) 94 Laboratory Tests Test 02/02/18 07:16 Creatinine 0.83 MG/DL Estimat Glomerular Filtration Rate 103 ML/MIN PHYSICAL EXAMINATION: GENERAL: No acute distress. Awake and alert. HEENT: The head is atraumatic. Extraocular muscles grossly intact. Pupils reactive to light. No icterus. Oropharynx - No visible lesions. NECK: Supple without swelling. LUNGS: Clear breath sounds. HEART: Regular S1 and S2 without audible murmurs. ABDOMEN: Bowel sounds present. Soft, nontender EXTREMITIES: The right arm above the elbow packing/dressing in place Swelling has resolved. SKIN: No diffuse rash. NEUROLOGIC: No gross focal findings. PSYCHIATRIC: Calm and cooperative. IMPRESSION: 1. Bacteremia due to Staphylococcus aureus. 1 of 4 bottles. 2. Bacteremia due to strep viridans. 3. Abscess of the left humerus with cellulitis due to strep viridans. The patient is status post incision and drainage for extensive cellulitis and including debridement of the muscle of the right upper arm. 4. Polysubstance abuse. Denies IV drugs. RECOMMENDATIONS: Continue Ceftriaxone IV until February 13. PIC line ordered. Okay to discharge from my standpoint when Outpatient IV antibiotics is arranged. Order form filled out. Raj De La Fuente MD Feb 02, 2018 13:27
[2018-02-02 13:46] VITALS: O2SAT 96
[2018-02-02 16:00] VITALS: BP 109/66; PULSE 74; RESP 16; TEMP 98.3; O2SAT 96
--- NOTE | 2018-02-02 16:04 | HHI.PR ---
Subjective Remarks Sleepy. No fever or chills. No n/v/d/c. Objective Vitals Vital Signs Date Time Temp Pulse Resp B/P (MAP) Pulse Ox O2 Delivery O2 Flow Rate FiO2 02/02/18 13:46 96 21 02/02/18 12:00 98.5 90 16 120/65 (83) 95 02/02/18 08:00 98.2 85 18 110/62 (78) 97 02/02/18 04:46 98.4 78 12 98/57 (71) 97 02/02/18 00:00 97.1 116 16 120/76 (91) 99 02/01/18 20:00 97.4 110 16 129/72 (91) 16 I/O 02/01/18 02/01/18 02/01/18 02/02/18 02/02/18 02/02/18 07:00 15:00 23:00 07:00 15:00 23:00 Intake Total 940 ml Balance 940 ml Intake Oral 940 ml # Voids 1 7 # Bowel Movements 1 Result Diagram: 02/02/18 0716 Imaging Last Impressions Chest X-Ray 01/24/18 0327 Signed Impressions: Service Date/Time: Wednesday, January 24, 2018 03:33 - CONCLUSION: Mild bibasilar atelectasis. Yakov Tee MD Objective Remarks GENERAL: Alert, oriented 3, NAD. CARDIOVASCULAR: Regular rate and rhythm without murmurs, gallops, or rubs. RESPIRATORY: Breath sounds equal bilaterally. No accessory muscle use. GASTROINTESTINAL: Abdomen soft, non-tender, nondistended. MUSCULOSKELETAL: No cyanosis, or edema. Right upper ext dressing on. BACK: Nontender without obvious deformity. No CVA tenderness. Procedures 01/25/2018 Irrigation and debridement of skin subcu tissue and muscle of the right upper arm. Placement of extensive wound VAC measuring 12 x 6 cm 01/31/2018 Staged removal of wound VAC sponge with sharp debridement of skin, subtendinous tissue, and muscle. A/P Problem List: (1) Cellulitis of right upper extremity ICD Code: L03.113 - Cellulitis of right upper limb Status: Acute (2) Abscess of right upper arm and forearm ICD Code: L02.413 - Cutaneous abscess of right upper limb Status: Acute (3) Sepsis ICD Code: A41.9 - Sepsis Status: Acute (4) Polysubstance abuse ICD Code: F19.10 - Other psychoactive substance abuse, uncomplicated Status: Acute (5) IV drug user ICD Code: F19.90 - IV drug user Status: Acute Assessment and Plan 42-year-old male admitted secondary to right bicep abscess and cellulitis, with sepsis. Sepsis (Tachycardia, WBC 17.5K, Right upper ext cellulitis/abscess). Right biceps abscess Bacteremia due to strep viridans Status post I&D and wound vac removal on 01/25 and 01/31 respectively. Per ID recommendations. DC Vancomycin Ceftriaxone 2g Q24hrs starting 02/01/2018. Morphine and Dilaudid PRN for pain. Nicotine dependence NicoDerm as needed for any withdrawal Full code. DVT ppx - SCDs. DC plan: pending improvement Seen by [facility] to follow up as OP. Rojas WANto evaluate if can DC patient on IV abx . Nakia Dominguez MD Feb 02, 2018 16:04
--- NOTE | 2018-02-02 18:39 | PD.CONS ---
History of Present Illness Service Plastic surgery Consult Requested By Primary team Reason for Consult Right arm wound Primary Care Physician Unknown Diagnoses: History of Present Illness Upon meeting the patient with the nurse, he was very irritable and aggressive as well as his friend. They both repeatedly exclaimed that they were "sick of this S---". Patient was very upset that he was not getting the IV narcotics that he felt his condition required. He refused to be evaluated. 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 SKIN: No rashes, ecchymoses or lesions. Cool and dry. HEAD: Atraumatic. Normocephalic. No temporal or scalp tenderness. EYES: Pupils equal round and reactive. Extraocular motions intact. No scleral icterus. No injection or drainage. ENT: Nose without bleeding, purulent drainage or septal hematoma. Throat without erythema, tonsillar hypertrophy or exudate. Uvula midline. Airway patent. NECK: Trachea midline. No JVD or lymphadenopathy. Supple, nontender, no meningeal signs. CARDIOVASCULAR: Regular rate and rhythm without murmurs, gallops, or rubs. RESPIRATORY: Clear to auscultation. Breath sounds equal bilaterally. No wheezes , rales, or rhonchi. GASTROINTESTINAL: Abdomen soft, non-tender, nondistended. No hepato-splenomegaly , or palpable masses. No guarding. MUSCULOSKELETAL: Extremities without clubbing, cyanosis, or edema. No joint tenderness, effusion, or edema noted. No calf tenderness. Negative Homans sign bilaterally. NEUROLOGICAL: Awake and alert. Cranial nerves II through XII intact. Motor and sensory grossly within normal limits. Five out of 5 muscle strength in all muscle groups. Normal speech. Laboratory Laboratory Tests Test 02/02/18 07:16 Creatinine 0.83 Estimat Glomerular Filtration Rate 103 Date/Time Source Procedure Growth Status 01/25/18 16:50 Blood Peripheral Aerobic Blood Culture - Final NO GROWTH IN 5 DAYS Complete 01/25/18 16:50 Blood Peripheral Anaerobic Blood Culture - Final NO GROWTH IN 5 DAYS Complete 01/25/18 11:51 Wound Arm Fungal Smear - Final NO FUNGAL ELEMENTS SEEN. Resulted 01/25/18 11:51 Wound Arm Fungal Culture - Preliminary NO GROWTH IN 1 WEEK Resulted Result Diagram: 02/02/18 0716 Akhil Villarreal MD Feb 02, 2018 18:39
== END 2018-02-02 18:30 | disposition home or self-care (01) | DRG 854 ==
LOC: NEPC 23:19 → NEDA 01-24 05:06 → NEDH 01-24 09:16 → NEPGCP 01-24 15:21 → N05B 01-27 18:16
PROVIDERS: ADMIT Hospitalist; ATTEND Hospitalist
PROC: 2W1AX6Z Compression of Right Upper Arm using Pressure Dressing (ICD-10-PCS; 2018-01-25)
PROC: 0KB70ZZ Excision of Right Upper Arm Muscle, Open Approach (ICD-10-PCS; principal; 2018-01-25 11:07)
PROC: 0KB70ZZ Excision of Right Upper Arm Muscle, Open Approach (ICD-10-PCS; 2018-01-31)
PROC: 2W5 Placement, Anatomical Regions, Removal (ICD-10-PCS; 2018-01-31)
DX: A41.01 Sepsis due to Methicillin susceptible Staphylococcus aureus (principal); L02.413 Cutaneous abscess of right upper limb; L03.113 Cellulitis of right upper limb; F19.10 Other psychoactive substance abuse, uncomplicated; F17.200 Nicotine dependence, unspecified, uncomplicated; Z88.5 Allergy status to narcotic agent
CPT/HCPCS: 71045; 76937; 80053; 80202; 80307; 81001; 82010; 82565; 83036; 83605; 85025; 85610; 85730; 87015; 87040; 87070; 87102; 87116; 87176; 87186; 87205; 87206; 93306; 94150; 99285; J0131; J0690; J0696; J1100; J1170; J1580; J1885; J2175; J2250; J2270; J2370; J2405; J2543; J3010; J3370; J7030; J7050; J7120